=== PATIENT | female | born 1935 | race African-American/Black ===

== ENCOUNTER 2017-03-21 12:54 | Inpatient (IN) | payer OTHER ==
[2017-03-21] VITALS (10 sets, daily range): BP systolic 118–182; BP diastolic 78–114
[~2017-03-21] VITALS: Ht 167.6 cm; Wt 91.8 kg
--- NOTE | 2017-03-21 13:06 | EKG ---
[facility] [address] [place] [address] Test Date: 2017-03-21 Test Time: 13:00:33 Pat Name: GAVIN MORA Department: Room: Gender: F [employer]: : 1935 Requested By: KATIE AMIN Order Number: [id number] Reading MD: Matty Hermosillo Measurements Intervals [place] Rate: 55 P: 54 TN: 206 QRS: -36 QRSD: 96 T: 64 QT: 466 QTc: 448 Interpretive Statements SINUS RHYTHM ABNORMAL LEFT AXIS DEVIATION LEFT ANTERIOR FASCICULAR BLOCK T ABNORMALITY IN LATERAL LEADS RI6.01 Unconfirmed report Compared to ECG 04/30/2012 17:36:38 No significant changes Electronically Signed On 03-22-2017 11:25:25 CDT by Matty Hermosillo
[2017-03-21 13:11] LABS: BASO % 1 % (0-3); EOS % 1 % (0-3); HEMATOCRIT 42.5 % (36.0-47.0); HEMOGLOBIN 13.4 g/dL (12.0-15.5); LYMPH # 1.3 x10^3/uL (1.0-4.8); LYMPH % 18 % (24-48); MEAN CORPUSCULAR HEMOGLOBIN 23 pg (25-35); MEAN CORPUSCULAR HGB CONC 32 g/dL (31-37); MEAN CORPUSCULAR VOLUME 72 fL (79-100); MONO % 4 % (0-9); NEUT % 77 % (31-73); PLATELET COUNT 185 x10^3/uL (140-400); RED BLOOD COUNT 5.86 x10^6/uL (3.50-5.40); RED CELL DISTRIBUTION WIDTH 15.6 % (11.5-14.5)
[2017-03-21] MEDS ORDERED: IV NORMAL SALINE 500ML BAG 500 ML IV ONE (13:15)
--- NOTE | 2017-03-21 13:21 | PHYS DOC ---
Adult General Chief Complaint Chief Complaint: confusion HPI HPI 81-year-old female presenting to the emergency department today after being found by family confused and with decreased mental status. Paramedics report the patient has focal neurologic deficit however on examination of the patient the patient is generally decreased mental status. Exam is difficult in the emergency room here because the patient does not follow commands. She does hold up her left arm when you help her she keeps it up. With her right arm, she does have drift. She was last known normal at 8:00 this morning per family. Location brain. Duration intermittent. No alleviating or exacerbating factors. Review of systems, allergies, medical history, and family history were unable to be obtained because the patient is currently confused and will not answer my questions. 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 ED course: 81-year-old female presenting with acute change in her mental status. EKG obtained along with CT of the head blood work. The patient was found to have a hemorrhagic stroke intraparenchymal bleed with intraventricular extension. I discussed the case with Dr. caal our neurosurgeon who recommended repeat head CT at 6 PM and tomorrow morning. The patient's INR was reversed using FFP and vitamin K. We do not have the new or degeneration prothrombin complex concentrate's available at our hospital system. I confirmed this with our pharmacist. The patient was intubated for airway protection. I had a long discussion with the family. Patient is full code. The patient was admitted to our hospital for further evaluation workup and care. Review of Systems Review of Systems see above Current Medications Current Medications Current Medications Medications (Trade) Dose Ordered Sig/Howard Start Time Stop Time Status Last Admin Dose Admin Diltiazem HCl 125 mg/Dextrose 125 ml @ 0 mls/hr CONT PRN 03/21/17 14:15 03/21/17 14:48 DC 03/21/17 14:35 5 MLS/HR Fentanyl Citrate (Fentanyl 2ml Vial) 50 mcg PRN Q1HR PRN 03/21/17 14:30 Morphine Sulfate 4 mg PRN Q1HR PRN 03/21/17 14:30 UNV Ondansetron HCl (Zofran) 4 mg PRN Q8HRS PRN 03/21/17 14:30 03/22/17 14:29 Phytonadione 10 mg/Sodium Chloride 51 ml @ 102 mls/hr 1X ONCE 03/21/17 14:00 03/21/17 14:29 DC 03/21/17 14:06 102 MLS/HR Propofol 100 ml @ 0 mls/hr CONT PRN 03/21/17 14:30 Sodium Chloride 500 ml @ 500 mls/hr 1X ONCE 03/21/17 13:15 03/21/17 14:14 DC 03/21/17 13:14 500 MLS/HR Allergies Allergies Allergies Coded Allergies Type Severity Reaction Last Updated Verified codeine Allergy Intermediate 03/21/17 Yes Physical Exam Physical Exam Constitutional: Well developed, well nourished,confused HENT: Normocephalic, atraumatic, bilateral external ears normal, oropharynx moist, no oral exudates, nose normal. [] Eyes: PERRLA, EOMI, conjunctiva normal, no discharge. [] Neck: Normal range of motion, no tenderness, supple, no stridor. [] Cardiovascular:Heart rate regular rhythm, no murmur [] Lungs & Thorax: Bilateral breath sounds clear to auscultation [] Abdomen: Bowel sounds normal, soft, no tenderness, no masses, no pulsatile masses. [] Skin: Warm, dry, no erythema, no rash. [] Back: No tenderness, no CVA tenderness. [] Extremities: No tenderness, no cyanosis, no clubbing, ROM intact, no edema. [] Neurologic: Mental status: Somnolent, does not withdraw to pain, opens eyes intermittently and spontaneously. Makes incomprehensible speech. Cranial nerves: Extraocular movements intact, eyebrows praneeth bilaterally smile symmetric, uvula elevation, shoulder shrug intact, tongue protrusion normal DTRs: 2+ Sensation: Difficult to assess, patient does not respond to painful pinch and does not answer my questions. Strength: 5/5 on the left upper and lower. 3/5 on the right upper and lower Psychologic: good eye contact. Current Patient Data Vital Signs Vital Signs Date Time Temp Pulse Resp B/P (MAP) Pulse Ox O2 Delivery O2 Flow Rate FiO2 03/21/17 13:00 97.7 64 20 167/99 (121) 97 Room Air 97.7 Lab Values Laboratory Tests Test 03/21/17 13:05 03/21/17 13:17 03/21/17 13:20 03/21/17 13:37 White Blood Count 7.0 x10^3/uL (4.0-11.0) Red Blood Count 5.86 x10^6/uL (3.50-5.40) H Hemoglobin 13.4 g/dL (12.0-15.5) Hematocrit 42.5 % (36.0-47.0) Mean Corpuscular Volume 72 fL (79-100) L Mean Corpuscular Hemoglobin 23 pg (25-35) L Mean Corpuscular Hemoglobin Concent 32 g/dL (31-37) Red Cell Distribution Width 15.6 % (11.5-14.5) H Platelet Count 185 x10^3/uL (140-400) Neutrophils (%) (Auto) 77 % (31-73) H Lymphocytes (%) (Auto) 18 % (24-48) L Monocytes (%) (Auto) 4 % (0-9) Eosinophils (%) (Auto) 1 % (0-3) Basophils (%) (Auto) 1 % (0-3) Neutrophils # (Auto) 5.4 x10^3uL (1.8-7.7) Lymphocytes # (Auto) 1.3 x10^3/uL (1.0-4.8) Monocytes # (Auto) 0.3 x10^3/uL (0.0-1.1) Eosinophils # (Auto) 0.0 x10^3/uL (0.0-0.7) Basophils # (Auto) 0.0 x10^3/uL (0.0-0.2) Platelet Estimate Adequate (ADEQUATE) Hypochromasia Slight Microcytosis Slight Sodium Level 138 mmol/L (136-145) Potassium Level 4.0 mmol/L (3.5-5.1) Chloride Level 101 mmol/L (98-107) Carbon Dioxide Level 23 mmol/L (21-32) Anion Gap 14 (6-14) Blood Urea Nitrogen 10 mg/dL (7-20) Creatinine 0.8 mg/dL (0.6-1.0) Estimated GFR (Cockcroft-Gault) 83.3 Glucose Level 205 mg/dL (70-99) H Calcium Level 9.5 mg/dL (8.5-10.1) Total Bilirubin 0.4 mg/dL (0.2-1.0) Direct Bilirubin 0.1 mg/dL (0.0-0.2) Aspartate Amino Transferase (AST) 19 U/L (15-37) Alanine Aminotransferase (ALT) 21 U/L (14-59) Alkaline Phosphatase 83 U/L (46-116) Troponin I Quantitative < 0.017 ng/mL (0.000-0.055) BM-Nyl-O-Type Natriuretic Peptide 544 pg/mL (0-449) H Total Protein 8.8 g/dL (6.4-8.2) H Albumin 4.0 g/dL (3.4-5.0) Lipase 104 U/L (73-393) Lactic Acid Level 1.6 mmol/L (0.4-2.0) Urine Collection Type Unknown Urine Color Yellow Urine Clarity Clear Urine pH 7.0 Urine Specific [place] 1.010 Urine Protein Negative mg/dL (NEG-TRACE) Urine Glucose (UA) 100 mg/dL (NEG) Urine Ketones (Stick) Negative mg/dL (NEG) Urine Blood Negative (NEG) Urine Nitrite Negative (NEG) Urine Bilirubin Negative (NEG) Urine Urobilinogen Dipstick 0.2 mg/dL (0.2 mg/dL) Urine Leukocyte Esterase Trace (NEG) Urine RBC 3-5 /HPF (0-2) Urine WBC 0 /HPF (0-4) Urine Bacteria 0 /HPF (0-FEW) Urine Mucus Slight /LPF Prothrombin Time 24.8 SEC (11.7-14.0) H Prothrombin Time INR 2.4 (0.8-1.1) H PTT 29 SEC (24-38) Laboratory Tests 03/21/17 13:05 Laboratory Tests 03/21/17 13:05 EKG EKG [] Radiology/Procedures Radiology/Procedures [] Course & Med Decision Making Course & Med Decision Making Pertinent Labs and Imaging studies reviewed. (See chart for details) [] Dragon Disclaimer Dragon Disclaimer This electronic medical record was generated, in whole or in part, using a voice recognition dictation system. Departure Departure Impression: Primary Impression: Altered mental status Additional Impressions: Encephalopathy Encephalopathy acute Hemorrhagic stroke Disposition: ADMITTED INPATIENT Admitting Physician: Other (ruesch) Condition: GRAVE Referrals: DANIA AMIN (PCP) Critical Care Time Critical care time was [45] minutes exclusive of procedures. Time was spent evaluating the patient, ordering blood tests and head CT, reviewing head CT, discussing with neurosurgeon, ordering the administration of bursal agents for warfarin, and documenting. Intubation Procedure Intubation Procedure Intub Indication: Respiratory failure Consent: Unable to give consent due to emergent nature. Medications Used: see nursing note Procedure: The patient was placed in the appropriate position. Intubation was performed using video laryngoscopy and a 7-1/2 endotracheal tube. Endotracheal tube is placed a 23cm at the teeth.. Initial confirmation of placement included bilateral breath sounds, tube fogging, adequate chest rise, adequate pulse oximetry reading. A chest x-ray to verify correct placement of the tube showed appropriate tube position. The patient tolerated the procedure well. Complications: none. Problem Qualifiers KATIE AMIN MD Mar 21, 2017 13:21
[2017-03-21 13:40] LABS: BILIRUBIN,URINE NEGATIVE (NEG); GLUCOSE,URINE 100 mg/dL (NEG); NITRITE,URINE NEGATIVE (NEG); PROTEIN,URINE NEGATIVE (NEG-TRACE); UROBILINOGEN,URINE 0.2 mg/dL (0.2 mg/dL)
--- NOTE | 2017-03-21 13:48 | RAD ---
Examination: CT head without contrast History: History of confusion Comparison: None available Technique: Axial CT images of the head was performed without contrast. RS Compliance Statement: One or more of the following individualized dose reduction techniques were utilized for this examination: 1. Automated exposure control 2. Adjustment of the mA and/or kV according to patient size 3. Use of iterative reconstruction technique Findings: There is 7 mm [id number] midline shift. There is a large hyperdensity identified in the region of the left basal ganglia measuring 4.9 x 4.0 cm likely a bleed with extension of blood into the left lateral ventricle, right lateral ventricle, third ventricle and fourth ventricle. There is complete effacement of the anterior horn of the left lateral ventricle There is minimal effacement of the suprasellar cistern. The visualized paranasal sinuses, sinuses are clear. Impression: 1. Large intracranial bleed identified in the region of the left basal ganglia with extension of blood into the lateral ventricles, third ventricle and fourth ventricle. There is effacement of the anterior horn of the left lateral ventricle. There is mild [id number] midline shift measuring 7 mm. 2. Mild effacement of the suprasellar cistern. Critical results called to ER physician at time of dictation.
--- NOTE | 2017-03-21 13:49 | RAD ---
Indication change in mental status. Suspect CVA. Protocol study. A single view of the chest was obtained and is compared to an examination almost 5 years earlier. Postoperative changes are noted. Prosthetic aortic valve is noted. Somewhat tortuous thoracic aorta is noted similar to the previous exam. Heart size is slightly enlarged but also similar. There is no gross congestive heart failure. A focal process in the chest is not seen. IMPRESSION: No acute finding apparent in the chest
[2017-03-21 13:50] LABS: CALCIUM 9.5 mg/dL (8.5-10.1); CREATININE 0.8 mg/dL (0.6-1.0); GFR 83.3
[2017-03-21 13:51] LABS: BACTERIA,URINE 0 /HPF (0-FEW); WBC,URINE 0 /HPF (0-4)
[2017-03-21 13:56] LABS: DIRECT BILIRUBIN 0.1 mg/dL (0.0-0.2); TOTAL BILIRUBIN 0.4 mg/dL (0.2-1.0); TOTAL PROTEIN 8.8 g/dL (6.4-8.2)
[2017-03-21 13:57] LABS: INR 2.4 (0.8-1.1); PROTHROMBIN TIME PATIENT 24.8 SEC (11.7-14.0)
[2017-03-21] MEDS ORDERED: PHYTONADIONE (VIT K1) 10 MG in IV NORMAL SALINE 50ML 50 ML IV ONE (14:00)
[2017-03-21] MEDS ORDERED: PROPOFOL 50 ML IV ONE (14:10)
[2017-03-21] MEDS ORDERED: MORPHINE SULFATE 4 MG/ML DISP.SYRIN. IV PRN (14:30)
[2017-03-21] MEDS ORDERED: ONDANSETRON PF 4 MG/2 ML VIAL. IV PRN (14:30)
[2017-03-21] MEDS ORDERED: fentaNYL PF VIAL 100 MCG/2 ML VIAL IV PRN ×2 (14:30)
[2017-03-21] MEDS ORDERED: MORPHINE SULFATE 2 MG/ML DISP.SYRIN. IV PRN ×2 (14:30)
[2017-03-21 14:31] LABS: PLT ESTIMATE ADEQUATE (ADEQUATE)
[2017-03-21 14:32] LABS: HYPOCHROMIA SLIGHT; MICROCYTOSIS SLIGHT
[2017-03-21 14:54] LABS: HCO3 ABG 22 mmol/L (21-28); PCO2 ABG 35 mmHg (35-46); PH ABG 7.42 (7.35-7.45); PO2 ABG 105 mmHg (65-108); SAT O2 ABG 98 % (92-99)
[2017-03-21 14:55] LABS: FIO2 ABG 50
--- NOTE | 2017-03-21 15:03 | ACF ---
Admit Criteria Forms Admit Criteria Forms Admit Criteria Forms MENTAL STATUS CHANGE Clinical Indications for Inpatient Care (Place 'X' for any and all applicable criteria): Ongoing inpatient care may be needed for 1 or more of the following(1)(2)(3)(5)( 6): [X]I. Suspected serious etiology (eg, medical disorder, [employer] event) of altered mental status [ ]II. Danger to self or others not manageable at lower level of care [ ]III. Grave disability (eg, inability to perform self care necessary at lower level of care) [ ]IV. Agitation or inappropriate behavior interfering with care for primary condition (eg, attempting to discontinue lines or drains prematurely, unable to cooperate with respiratory care) [ ]V. Delirium [A] [D][E] as described by 1 or more of the following(26): [ ]a) Delirium due to alcohol or sedative [F] withdrawal [ ]b) Delirium of uncertain etiology that has not responded to appropriate empiric treatment [ ]c) Delirium that prevents performance of a life-sustaining function (eg, feeding or hydrating oneself) [X]. General contraindications and/or Inappropriate clinical situations for Observational Care in patients with Mental Status Change, when ANY ONE of the following is required: [X]a) Prediction of prolongation of LOS based on ANY ONE of the following may be considered as a contraindication for observational care 2, 3, 4, 5, 6, 7, 8, 9, 10, 11 [X]i) Age > 65 yrs. [ ]ii) Patient arriving by ambulance [ ]iii) Patient with high acuity [ ]iv) Patient requiring vital sign monitoring [ ]v) Patient on IV medication [ ]b) Systolic blood pressures greater than or equal to 180mmHg 3, 12 [ ]c) Patient with altered mental status including delirium and other alteration of consciousness, (3) [ ]d) Patient whose discharge disposition will be to a [facility] home or rehabilitation home should not be managed in Emergency Department Observation Unit. CMS rule requires 3 days hospital stay before such placement.3,13 [ ]e) Patient with failure to thrive due to broad array of etiologies 3,16,17 [ ]f) Inability to ambulate 3,14 Extended stay beyond goal length of stay for the primary condition may be needed until ALL of the following are present(3)(5): [ ]a) Underlying medical etiology of mental status change is absent, or has been established and adequately treated [ ]b) Danger to self or others is absent or manageable at lower level of care. [ ]c) Behavior crisis management, including physical or chemical restraints, is not required or available at lower level of car [ ]d) Substance or alcohol withdrawal is absent or manageable at lower level of care. [ ]e) Behavioral symptoms (eg, agitation, somnolence, inappropriate behavior) are absent, or are manageable at lower level of care. The original [facility] [employer] content created by [facility] has been revised. The portions of the content which have been revised are identified through the use of italic text or in bold, and [facility] has neither reviewed nor approved the modified material. All other unmodified content is copyright [facility]. Please see references footnoted in the original [facility] [employer] edition 2016 [employer] Mar 21, 2017 15:03
--- NOTE | 2017-03-21 16:44 | PDOC2 ---
NEUROLOGY CONSULT Date of Admission Date of Admission DATE: 03/21/17 TIME: 16:33 Reason for Consult Reason for Consult: IMPRESSION: Acute large left BG hemorrhagic stroke with extension into lateral, 3rd, and 4th ventricles. Midline shift from left to right. Respiratory failure. Metabolic encephalopathy. Ischemic encephalopathy. HTN DM CAD, s/p CABG? RECOMMENDATIONS/PLAN: BP control, BP no higher than 150/90 mmHg. Avoid antiplatelet and anticoagulants. Repeat HCT anytime if condition worse. Vimpat 100 mg IV q12h. Control hyperglycemia. Treat medical diseases. Discussed with her daughter about poor prognosis. HISTORY OF THE PRESENT ILLNESS: 81-y-old AA female patient with above medical diseases was found by her family to have mental status changes and confusion before 8:00 am on 03/21/17. Her mentation continued worse, so she was brought to the ER of [facility] and her HCT revealed large ICH and IVH. PAST MEDICAL HISTORY: Please see above. PAST SURGERY HISTORY: S/P CABG? ALLERGY: Unknown MEDICATIONS: Refer to [facility] FAMILY HISTORY: Non contributory. SOCIAL HISTORY: Denies smoking, drinking, and illicit drug use. REVIEW OF SYSTEMS: Constitutional: No malnutrition, or cachexia. Head: No recent traumatic brain or head injury. Skin: No edema, or rash. Ear: No infection. Eyes: No vision loss or color blindness. Nose: No bleeding or purulent discharges. Hearing: Hearing decrease. Neck: No injury. Breast: No history of cancer, masses,or discharges. Cardiac: CAD, s/p CABG,? HTN. Pulmonary: No COPD. GI: No GI ulcer. Urinary/genital: UTI. Endocrinologic: Diabetes Mellitus. Skeletomuscular: No muscular atrophy, deformity. Neurological: see HP. Psychiatric: Denies drug use/abuse. Otherwise, not [id number] review of systems. PHYSICAL EXAMINATION: General appearance is in acute distress. HEENT: Normocephalic and nontraumatic. Eyes, nose, ears, and throat are unremarkable. Neck is supple. No lymphadenopathy. No crepitus. Cardiovascular: S1, S2, regular rate and rhythm. Pulmonary: Mildly decreased to auscultation bilaterally. Abdomen: Bowel sounds are positive. Extremities: No rash, lesions. NEUROLOGICAL EXAMINATION: Unresponsive. On vent. Not oriented to time, place and person. Pupil 1 mm, not reactive. EOMI not elicited. CN: Right VII palsy. Muscle tone: Decreased. Muscle strength: minimal movements in feet noted to stimuli. DTR: 1 Plantar reflex: Neutral response bilaterally Gait: Not able to walk. Sensory exam: no response. Not able to access cerebellar signs. Current Medications Current Medications Current Medications Sodium Chloride 500 ml @ 500 mls/hr 1X ONCE IV Last administered on 13:14; Start 03/21/17 at 13:15; Stop 03/21/17 at 14:14; Status DC Phytonadione 10 mg/Sodium Chloride 51 ml @ 102 mls/hr 1X ONCE IV Last administered on 03/21/17 14:06; Start 03/21/17 at 14:00; Stop 03/21/17 at 14:29 ; Status DC Diltiazem HCl 125 mg/Dextrose 125 ml @ 0 mls/hr CONT PRN IV SEE I/O RECORD Last administered on 03/21/17 14:35; Start 03/21/17 at 14:15; Stop 03/21/17 at 14:48; Status DC Propofol 50 ml @ As Directed STK-MED ONCE IV ; Start 03/21/17 at 14:10; Stop at 14:11; Status DC Levetiracetam 1000 mg/Sodium Chloride 110 ml @ 440 mls/hr 1X ONCE IV Last administered on 03/21/17 14:51; Start 03/21/17 at 14:45; Stop 03/21/17 at 14:59 ; Status DC Ondansetron HCl (Zofran) 4 mg PRN Q8HRS PRN IV NAUSEA/VOMITING; Start 03/21/17 at 14:30; Stop 03/22/17 at 14:29 Morphine Sulfate 2 mg PRN Q2HR PRN IV PAIN; Start 03/21/17 at 14:30; Stop 03/22 at 14:29; Status UNV Propofol 100 ml @ 0 mls/hr CONT PRN IV PER PROTOCOL; Start 03/21/17 at 14:30 Fentanyl Citrate (Fentanyl 2ml Vial) 25 mcg PRN Q1HR PRN IV COMM; Start at 14:30 Fentanyl Citrate (Fentanyl 2ml Vial) 50 mcg PRN Q1HR PRN IV COMM; Start at 14:30 Chlorhexidine Gluconate (Peridex) 15 ml BID MM ; Start 03/21/17 at 21:00 Famotidine (Pepcid) 20 mg BID IVP ; Start 03/21/17 at 21:00 Morphine Sulfate 2 mg PRN Q1HR PRN IV COMM; Start 03/21/17 at 14:30; Status UNV Morphine Sulfate 4 mg PRN Q1HR PRN IV COMM; Start 03/21/17 at 14:30; Status UNV Nicardipine HCl 50 mg/Sodium Chloride 270 ml @ 0 mls/hr CONT PRN IV SEE I/O RECORD Last administered on 03/21/17t 15:05; Start 03/21/17 at 15:00 Allergies Allergies: Coded Allergies: codeine (Verified Allergy, Intermediate, 03/21/17) Vitals VITALS Vital Signs Date Time Temp Pulse Resp B/P (MAP) Pulse Ox O2 Delivery O2 Flow Rate FiO2 03/21/17 14:40 99 Ventilator 03/21/17 13:00 97.7 64 20 167/99 (121) 97.7 Labs Labs Laboratory Tests Test 03/21/17 13:05 03/21/17 13:17 03/21/17 13:20 03/21/17 13:37 White Blood Count 7.0 x10^3/uL (4.0-11.0) Red Blood Count 5.86 x10^6/uL (3.50-5.40) Hemoglobin 13.4 g/dL (12.0-15.5) Hematocrit 42.5 % (36.0-47.0) Mean Corpuscular Volume 72 fL (79-100) Mean Corpuscular Hemoglobin 23 pg (25-35) Mean Corpuscular Hemoglobin Concent 32 g/dL (31-37) Red Cell Distribution Width 15.6 % (11.5-14.5) Platelet Count 185 x10^3/uL (140-400) Neutrophils (%) (Auto) 77 % (31-73) Lymphocytes (%) (Auto) 18 % (24-48) Monocytes (%) (Auto) 4 % (0-9) Eosinophils (%) (Auto) 1 % (0-3) Basophils (%) (Auto) 1 % (0-3) Neutrophils # (Auto) 5.4 x10^3uL (1.8-7.7) Lymphocytes # (Auto) 1.3 x10^3/uL (1.0-4.8) Monocytes # (Auto) 0.3 x10^3/uL (0.0-1.1) Eosinophils # (Auto) 0.0 x10^3/uL (0.0-0.7) Basophils # (Auto) 0.0 x10^3/uL (0.0-0.2) Platelet Estimate Adequate (ADEQUATE) Hypochromasia Slight Microcytosis Slight Sodium Level 138 mmol/L (136-145) Potassium Level 4.0 mmol/L (3.5-5.1) Chloride Level 101 mmol/L (98-107) Carbon Dioxide Level 23 mmol/L (21-32) Anion Gap 14 (6-14) Blood Urea Nitrogen 10 mg/dL (7-20) Creatinine 0.8 mg/dL (0.6-1.0) Estimated GFR (Cockcroft-Gault) 83.3 Glucose Level 205 mg/dL (70-99) Calcium Level 9.5 mg/dL (8.5-10.1) Total Bilirubin 0.4 mg/dL (0.2-1.0) Direct Bilirubin 0.1 mg/dL (0.0-0.2) Aspartate Amino Transf (AST/SGOT) 19 U/L (15-37) Alanine Aminotransferase (ALT/SGPT) 21 U/L (14-59) Alkaline Phosphatase 83 U/L (46-116) Troponin I Quantitative < 0.017 ng/mL (0.000-0.055) DQ-Roy-W-Type Natriuretic Peptide 544 pg/mL (0-449) Total Protein 8.8 g/dL (6.4-8.2) Albumin 4.0 g/dL (3.4-5.0) Lipase 104 U/L (73-393) Lactic Acid Level 1.6 mmol/L (0.4-2.0) Urine Collection Type Unknown Urine Color Yellow Urine Clarity Clear Urine pH 7.0 Urine Specific [place] 1.010 Urine Protein Negative mg/dL (NEG-TRACE) Urine Glucose (UA) 100 mg/dL (NEG) Urine Ketones (Stick) Negative mg/dL (NEG) Urine Blood Negative (NEG) Urine Nitrite Negative (NEG) Urine Bilirubin Negative (NEG) Urine Urobilinogen Dipstick 0.2 mg/dL (0.2 mg/dL) Urine Leukocyte Esterase Trace (NEG) Urine RBC 3-5 /HPF (0-2) Urine WBC 0 /HPF (0-4) Urine Bacteria 0 /HPF (0-FEW) Urine Mucus Slight /LPF Prothrombin Time 24.8 SEC (11.7-14.0) Prothromb Time International Ratio 2.4 (0.8-1.1) Activated Partial Thromboplast Time 29 SEC (24-38) Test 03/21/17 14:45 O2 Saturation 98 % (92-99) Arterial Blood pH 7.42 (7.35-7.45) Arterial Blood pCO2 at Patient Temp 35 mmHg (35-46) Arterial Blood pO2 at Patient Temp 105 mmHg (65-108) Arterial Blood HCO3 22 mmol/L (21-28) Arterial Blood Base Excess -2 mmol/L (-3-3) FiO2 50 Laboratory Tests Test 03/21/17 13:05 03/21/17 13:17 03/21/17 13:20 03/21/17 13:37 White Blood Count 7.0 x10^3/uL (4.0-11.0) Red Blood Count 5.86 x10^6/uL (3.50-5.40) Hemoglobin 13.4 g/dL (12.0-15.5) Hematocrit 42.5 % (36.0-47.0) Mean Corpuscular Volume 72 fL (79-100) Mean Corpuscular Hemoglobin 23 pg (25-35) Mean Corpuscular Hemoglobin Concent 32 g/dL (31-37) Red Cell Distribution Width 15.6 % (11.5-14.5) Platelet Count 185 x10^3/uL (140-400) Neutrophils (%) (Auto) 77 % (31-73) Lymphocytes (%) (Auto) 18 % (24-48) Monocytes (%) (Auto) 4 % (0-9) Eosinophils (%) (Auto) 1 % (0-3) Basophils (%) (Auto) 1 % (0-3) Neutrophils # (Auto) 5.4 x10^3uL (1.8-7.7) Lymphocytes # (Auto) 1.3 x10^3/uL (1.0-4.8) Monocytes # (Auto) 0.3 x10^3/uL (0.0-1.1) Eosinophils # (Auto) 0.0 x10^3/uL (0.0-0.7) Basophils # (Auto) 0.0 x10^3/uL (0.0-0.2) Platelet Estimate Adequate (ADEQUATE) Hypochromasia Slight Microcytosis Slight Sodium Level 138 mmol/L (136-145) Potassium Level 4.0 mmol/L (3.5-5.1) Chloride Level 101 mmol/L (98-107) Carbon Dioxide Level 23 mmol/L (21-32) Anion Gap 14 (6-14) Blood Urea Nitrogen 10 mg/dL (7-20) Creatinine 0.8 mg/dL (0.6-1.0) Estimated GFR (Cockcroft-Gault) 83.3 Glucose Level 205 mg/dL (70-99) Calcium Level 9.5 mg/dL (8.5-10.1) Total Bilirubin 0.4 mg/dL (0.2-1.0) Direct Bilirubin 0.1 mg/dL (0.0-0.2) Aspartate Amino Transf (AST/SGOT) 19 U/L (15-37) Alanine Aminotransferase (ALT/SGPT) 21 U/L (14-59) Alkaline Phosphatase 83 U/L (46-116) Troponin I Quantitative < 0.017 ng/mL (0.000-0.055) BA-Yox-G-Type Natriuretic Peptide 544 pg/mL (0-449) Total Protein 8.8 g/dL (6.4-8.2) Albumin 4.0 g/dL (3.4-5.0) Lipase 104 U/L (73-393) Lactic Acid Level 1.6 mmol/L (0.4-2.0) Urine Collection Type Unknown Urine Color Yellow Urine Clarity Clear Urine pH 7.0 Urine Specific [place] 1.010 Urine Protein Negative mg/dL (NEG-TRACE) Urine Glucose (UA) 100 mg/dL (NEG) Urine Ketones (Stick) Negative mg/dL (NEG) Urine Blood Negative (NEG) Urine Nitrite Negative (NEG) Urine Bilirubin Negative (NEG) Urine Urobilinogen Dipstick 0.2 mg/dL (0.2 mg/dL) Urine Leukocyte Esterase Trace (NEG) Urine RBC 3-5 /HPF (0-2) Urine WBC 0 /HPF (0-4) Urine Bacteria 0 /HPF (0-FEW) Urine Mucus Slight /LPF Prothrombin Time 24.8 SEC (11.7-14.0) Prothromb Time International Ratio 2.4 (0.8-1.1) Activated Partial Thromboplast Time 29 SEC (24-38) Test 03/21/17 14:45 O2 Saturation 98 % (92-99) Arterial Blood pH 7.42 (7.35-7.45) Arterial Blood pCO2 at Patient Temp 35 mmHg (35-46) Arterial Blood pO2 at Patient Temp 105 mmHg (65-108) Arterial Blood HCO3 22 mmol/L (21-28) Arterial Blood Base Excess -2 mmol/L (-3-3) FiO2 50 DAMIEN SCHILLING MD Mar 21, 2017 16:44
--- NOTE | 2017-03-21 17:01 | PDOC2 ---
PALLIATIVE CARE Palliative Care Note Palliative Care Consult requested by Dr. Rodriguez to address plan of care Diagnosis; Hemorrhagic CVA--large with midline shift; PMH: Valve replacement --on Warfarin and ASA; HTN; elevated cholesterol: Hip and knee surgery/replacement; cataract surgery Patient on Vent. Versed gtt; Met with Drea daughter (identifies herself as DPOA)along with Dr. Rodriguez and Paradise RN. Medical condition was reviewed by Michael. Drea requests DNR. Drea understands seriousness of medical condition. Patient has 5 other children; Patti, , Talisha, Roseann, Kaitlyn and Amador. Plan repeat of CT scan at 6pm Suyapa is important to patient. Will meet with family again tomorrow at [address] Mar 21, 2017 17:01
[2017-03-21] MEDS: PROPOFOL 100 ML IV PRN ×2 (17:51→22:56)
[2017-03-21] MEDS ORDERED: ROCURONIUM 50 MG/5 ML VIAL. ONE (17:59)
[2017-03-21] MEDS ORDERED: ETOMIDATE 20 MG/10 ML VIAL. IV ONE (17:59)
--- NOTE | 2017-03-21 18:34 | RAD ---
CT HEAD WO CONTRAST dated 03/21/2017 6:00 PM Indication: Follow-up intracranial hemorrhage confusionIPH, REPEAT, F/U BRAIN BLEED. PREVIOUS CT TODAY AT 13:30PM. , Follow-up brain bleed. Comparison: 03/21/2017 at 1331 Technique: Contiguous axial imaging of the head performed from skull base to vertex. One or more of the following individualized dose reduction techniques were utilized for this examination: 1. Automated exposure control 2. Adjustment of the mA and/or kV according to patient size 3. Use of iterative reconstruction technique Findings: Large parenchymal hematoma centered at the left frontal lobe has increased in size from prior study, measuring 4.9 x 5.7 cm versus 3.7 x 4.6 cm previously. Extensive intraventricular hemorrhage has also progressed with increasing hemorrhage in the right lateral ventricle and fourth ventricle. Moderate mass effect upon the left lateral ventricle with estimated 11 mm of [id number] midline shift versus 10 mm previously. There is effacement of the ambient cisterns, left greater than right, unchanged. There has been progressive dilation of the right lateral ventricle, measuring 2.0 cm versus 1.6 cm diameter. Mild patchy low density in the deep/subcortical periventricular white matter, unchanged. No extra-axial collection. Visualized paranasal sinuses and mastoid air cells are clear. No acute calvarial abnormality. IMPRESSION: 1. Enlarging left frontal parenchymal hematoma with increasing intraventricular hemorrhage. 2. Moderate to severe mass effect with [id number] midline shift, mildly increased from prior study. There is effacement of the ambient cisterns with possible early entrapment of the right lateral ventricle. 3. Chronic small vessel ischemic changes and atrophy. Electronically signed by: Simón Sierra MD (03/21/2017 6:31 PM)
[2017-03-21] MEDS ORDERED: DIFL5DRO2 OP (18:44)
[2017-03-21] MEDS ORDERED: DILT120C80 PO (18:44)
[2017-03-21] MEDS ORDERED: SOTA80TA48 PO (18:44)
[2017-03-21] MEDS ORDERED: TOBR5DRO13 EACHEYE (18:44)
[2017-03-21] MEDS ORDERED: PRAV20TA2 PO (18:44)
[2017-03-21] MEDS ORDERED: LOSA100T6 PO (18:44)
[2017-03-21] MEDS ORDERED: WARF5TAB7 PO (18:44)
[2017-03-21] MEDS ORDERED: PRAV40TA2 PO (18:44)
[2017-03-21 19:56] LABS: INR 1.5 (0.8-1.1); PROTHROMBIN TIME PATIENT 16.8 SEC (11.7-14.0)
[2017-03-21] MEDS: LACOSAMIDE 100 MG in IV NORMAL SALINE 50ML 50 ML IV SCH (21:20)
--- NOTE | 2017-03-21 21:20 | HP ---
ADMIT DATE: 03/21/2017 CHIEF COMPLAINT: Intracranial hemorrhage. HISTORY OF PRESENT ILLNESS: The patient is an 81-year-old -Portuguese woman with past medical history of atrial fibrillation and mitral valve replacement, on anticoagulation, who presented to the Emergency Room after being found by the family confused at home. This apparently developed in this morning, with family relating that at 8:00 she was fairly normal. In the Emergency Room, she was not following any commands and a CT of the head revealed a large intracranial bleed in the region of the left basal ganglia with extension of blood into the lateral ventricles, third ventricle and fourth ventricle. Also noted were mild left to right midline shift measuring 7 mm, mild effacement of the suprasellar cistern. The patient was therefore intubated and brought to the ICU. Dr. Fabian from Neurosurgery has been consulted, no intervention is planned immediately, but repeat scans have been scheduled. PAST MEDICAL HISTORY: Atrial fibrillation, mitral valve replacement 9 years ago, osteoarthritis, status post multiple joint replacements, status post bilateral cataract removals. SOCIAL HISTORY: Lives with family. No toxic habits. FAMILY HISTORY: Unknown. ALLERGIES: CODEINE. HOME MEDICATIONS: Reconciled with MAR. REVIEW OF SYSTEMS: Unable to obtain as she is intubated and sedated. PHYSICAL EXAMINATION: VITAL SIGNS: Show a blood pressure of 167/99, heart rate of 64, respiratory rate at 20. She is afebrile. GENERAL: This is an 81-year-old obese -Portuguese woman, intubated and sedated. HEENT: Shows no scleral icterus. NECK: Supple. LUNGS: Fairly clear anteriorly. HEART: Has regular rate and rhythm. LUNGS: Clear. ABDOMEN: Has positive bowel sounds, soft, nontender. EXTREMITIES: Show no edema. NEUROLOGIC: Shows pinpoint pupils, not responsive to tactile stimuli, but to deep pain in the extremities. LABORATORY DATA: CBC with a WBC of 7, hemoglobin 13.4, MCV of 72, platelets of 185. Chemistries with a BUN and creatinine of 10 and 0.8, normal electrolytes, glucose at 205. Normal LFTs. Coags with an INR of 2.4, APTT of 29. Urine essentially negative. IMAGING: CT of the head as above. Chest x-ray without any acute findings. ASSESSMENT AND PLAN: The patient is an 81-year-old woman on anticoagulation for cardiac issues who presented with intracranial bleed. This apparently is a spontaneous development as family is unaware of any falls or head injuries today. Unfortunately, the bleed is quite extensive involving all the ventricles and significant infra parenchymal tissue. At this point, neurosurgical intervention is not indicated; however, serial CTs of the head will be obtained to monitor development of the bleed. Consideration for relief of hydrocephalus with shunt is given; however, this is unlikely to improve her overall situation significantly. Family discussion with KARINE, daughter, Drea was held with palliative care services present as well. Family would like to make the patient DNR. Continue monitoring for the time being, reevaluate the situation once all results are in. Her family is hesitant at this point to consider a shunt placement given the poor outlook. Drea and her sisters actually have been taking care of their father for 6 months who was on hospice as well as currently an uncle and therefore have quite a bit of experience with end of life situations. Code status was therefore changed to DNR. A consult with Neurology, Neurosurgery and Pulmonary for management of vent was obtained as well. The patient is somewhat hypertensive. Given the extent of her bleed, we will try and manage blood pressure with IV hydralazine as needed. For bleed itself and elevated INR, 2 units of FFP were given. We will monitor INR as well and continue administration as indicated as effects of FFP on INR typically are quite short lived between 8 and 12 hours. The patient's condition is critical. Prognosis is poor. YASMANY MORALES MD DR: UR/nts JOB#: [id number] / [id number] DANIA Brown MD [facility]ENTERLee
[2017-03-21] MEDS: CHLORHEXIDINE 0.12% 15 ML MOUTHWASH. MM SCH (21:21)
[2017-03-21] MEDS: FAMOTIDINE 20 MG/2 ML VIAL IVP SCH (21:21)
[2017-03-22] VITALS (28 sets, daily range): BP systolic 111–199; BP diastolic 78–115
[2017-03-22 05:21] LABS: BASO % 0 % (0-3); EOS % 0 % (0-3); HEMATOCRIT 37.1 % (36.0-47.0); HEMOGLOBIN 11.9 g/dL (12.0-15.5); LYMPH % 10 % (24-48); MEAN CORPUSCULAR HEMOGLOBIN 23 pg (25-35); MEAN CORPUSCULAR HGB CONC 32 g/dL (31-37); MEAN CORPUSCULAR VOLUME 71 fL (79-100); MONO % 8 % (0-9); NEUT % 82 % (31-73); PLATELET COUNT 168 x10^3/uL (140-400); RED BLOOD COUNT 5.22 x10^6/uL (3.50-5.40); RED CELL DISTRIBUTION WIDTH 14.8 % (11.5-14.5); WHITE BLOOD COUNT 10.4 x10^3/uL (4.0-11.0)
[2017-03-22 05:41] LABS: CALCIUM 9.3 mg/dL (8.5-10.1); CREATININE 0.7 mg/dL (0.6-1.0); GFR 97.2; POTASSIUM 3.1 mmol/L (3.5-5.1)
[2017-03-22 08:38] LABS: HCO3 ABG 22 mmol/L (21-28); PCO2 ABG 27 mmHg (35-46); PH ABG 7.53 (7.35-7.45); PO2 ABG 142 mmHg (65-108); SAT O2 ABG 99 % (92-99)
[2017-03-22 08:43] LABS: FIO2 ABG 40
[2017-03-22] MEDS: CHLORHEXIDINE 0.12% 15 ML MOUTHWASH. MM SCH ×2 (09:04→21:18)
[2017-03-22] MEDS: FAMOTIDINE 20 MG/2 ML VIAL IVP SCH ×2 (09:04→21:18)
[2017-03-22] MEDS: LACOSAMIDE 100 MG in IV NORMAL SALINE 50ML 50 ML IV SCH ×2 (09:05→21:18)
--- NOTE | 2017-03-22 09:08 | PDOC ---
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 Replace potassium today Family meeting today, no surgical plans, Nicardipine gtt to control BP NS recommendations noted. hold oral AC Prognosis is very poor. DNR d/w family at bed side, all questions answered, palliative team is following, planning for hospice from tomorrow once every one is here. Vitals Vitals Vital Signs Date Time Temp Pulse Resp B/P (MAP) Pulse Ox O2 Delivery O2 Flow Rate FiO2 03/22/17 08:00 100.3 80 19 160/88 (112) 100 Ventilator 100.3 Physical Exam General: Other (intubated. ) Heart: Normal S1, Normal S2 Lungs: Clear, Wheezing Abdomen: Normal bowel sounds, Soft Extremities: No clubbing Skin: No rashes Labs LABS Laboratory Tests Test 03/21/17 13:05 03/21/17 13:17 03/21/17 13:20 03/21/17 13:37 White Blood Count 7.0 x10^3/uL (4.0-11.0) Red Blood Count 5.86 x10^6/uL (3.50-5.40) Hemoglobin 13.4 g/dL (12.0-15.5) Hematocrit 42.5 % (36.0-47.0) Mean Corpuscular Volume 72 fL (79-100) Mean Corpuscular Hemoglobin 23 pg (25-35) Mean Corpuscular Hemoglobin Concent 32 g/dL (31-37) Red Cell Distribution Width 15.6 % (11.5-14.5) Platelet Count 185 x10^3/uL (140-400) Neutrophils (%) (Auto) 77 % (31-73) Lymphocytes (%) (Auto) 18 % (24-48) Monocytes (%) (Auto) 4 % (0-9) Eosinophils (%) (Auto) 1 % (0-3) Basophils (%) (Auto) 1 % (0-3) Neutrophils # (Auto) 5.4 x10^3uL (1.8-7.7) Lymphocytes # (Auto) 1.3 x10^3/uL (1.0-4.8) Monocytes # (Auto) 0.3 x10^3/uL (0.0-1.1) Eosinophils # (Auto) 0.0 x10^3/uL (0.0-0.7) Basophils # (Auto) 0.0 x10^3/uL (0.0-0.2) Platelet Estimate Adequate (ADEQUATE) Hypochromasia Slight Microcytosis Slight Sodium Level 138 mmol/L (136-145) Potassium Level 4.0 mmol/L (3.5-5.1) Chloride Level 101 mmol/L (98-107) Carbon Dioxide Level 23 mmol/L (21-32) Anion Gap 14 (6-14) Blood Urea Nitrogen 10 mg/dL (7-20) Creatinine 0.8 mg/dL (0.6-1.0) Estimated GFR (Cockcroft-Gault) 83.3 Glucose Level 205 mg/dL (70-99) Calcium Level 9.5 mg/dL (8.5-10.1) Total Bilirubin 0.4 mg/dL (0.2-1.0) Direct Bilirubin 0.1 mg/dL (0.0-0.2) Aspartate Amino Transf (AST/SGOT) 19 U/L (15-37) Alanine Aminotransferase (ALT/SGPT) 21 U/L (14-59) Alkaline Phosphatase 83 U/L (46-116) Troponin I Quantitative < 0.017 ng/mL (0.000-0.055) AQ-Wga-S-Type Natriuretic Peptide 544 pg/mL (0-449) Total Protein 8.8 g/dL (6.4-8.2) Albumin 4.0 g/dL (3.4-5.0) Lipase 104 U/L (73-393) Lactic Acid Level 1.6 mmol/L (0.4-2.0) Urine Collection Type Unknown Urine Color Yellow Urine Clarity Clear Urine pH 7.0 Urine Specific [place] 1.010 Urine Protein Negative mg/dL (NEG-TRACE) Urine Glucose (UA) 100 mg/dL (NEG) Urine Ketones (Stick) Negative mg/dL (NEG) Urine Blood Negative (NEG) Urine Nitrite Negative (NEG) Urine Bilirubin Negative (NEG) Urine Urobilinogen Dipstick 0.2 mg/dL (0.2 mg/dL) Urine Leukocyte Esterase Trace (NEG) Urine RBC 3-5 /HPF (0-2) Urine WBC 0 /HPF (0-4) Urine Bacteria 0 /HPF (0-FEW) Urine Mucus Slight /LPF Prothrombin Time 24.8 SEC (11.7-14.0) Prothromb Time International Ratio 2.4 (0.8-1.1) Activated Partial Thromboplast Time 29 SEC (24-38) Test 03/21/17 14:45 03/21/17 19:35 03/22/17 04:25 03/22/17 08:30 O2 Saturation 98 % (92-99) 99 % (92-99) Arterial Blood pH 7.42 (7.35-7.45) 7.53 (7.35-7.45) Arterial Blood pCO2 at Patient Temp 35 mmHg (35-46) 27 mmHg (35-46) Arterial Blood pO2 at Patient Temp 105 mmHg (65-108) 142 mmHg (65-108) Arterial Blood HCO3 22 mmol/L (21-28) 22 mmol/L (21-28) Arterial Blood Base Excess -2 mmol/L (-3-3) 1 mmol/L (-3-3) FiO2 50 40 Prothrombin Time 16.8 SEC (11.7-14.0) Prothromb Time International Ratio 1.5 (0.8-1.1) White Blood Count 10.4 x10^3/uL (4.0-11.0) Red Blood Count 5.22 x10^6/uL (3.50-5.40) Hemoglobin 11.9 g/dL (12.0-15.5) Hematocrit 37.1 % (36.0-47.0) Mean Corpuscular Volume 71 fL (79-100) Mean Corpuscular Hemoglobin 23 pg (25-35) Mean Corpuscular Hemoglobin Concent 32 g/dL (31-37) Red Cell Distribution Width 14.8 % (11.5-14.5) Platelet Count 168 x10^3/uL (140-400) Neutrophils (%) (Auto) 82 % (31-73) Lymphocytes (%) (Auto) 10 % (24-48) Monocytes (%) (Auto) 8 % (0-9) Eosinophils (%) (Auto) 0 % (0-3) Basophils (%) (Auto) 0 % (0-3) Neutrophils # (Auto) 8.5 x10^3uL (1.8-7.7) Lymphocytes # (Auto) 1.0 x10^3/uL (1.0-4.8) Monocytes # (Auto) 0.8 x10^3/uL (0.0-1.1) Eosinophils # (Auto) 0.0 x10^3/uL (0.0-0.7) Basophils # (Auto) 0.0 x10^3/uL (0.0-0.2) Sodium Level 135 mmol/L (136-145) Potassium Level 3.1 mmol/L (3.5-5.1) Chloride Level 98 mmol/L (98-107) Carbon Dioxide Level 23 mmol/L (21-32) Anion Gap 14 (6-14) Blood Urea Nitrogen 10 mg/dL (7-20) Creatinine 0.7 mg/dL (0.6-1.0) Estimated GFR (Cockcroft-Gault) 97.2 Glucose Level 134 mg/dL (70-99) Calcium Level 9.3 mg/dL (8.5-10.1) Assessment and Plan Assessmemt and Plan Problems Medical Problems: (1) Altered mental status Status: Acute (2) Encephalopathy Status: Acute (3) Encephalopathy acute Status: Acute Problems: Comment Review of Relevant I have reviewed the following items javier (where applicable) has been applied. Labs Laboratory Tests Test 03/21/17 13:05 03/21/17 13:17 03/21/17 13:20 03/21/17 13:37 White Blood Count 7.0 x10^3/uL (4.0-11.0) Red Blood Count 5.86 x10^6/uL (3.50-5.40) Hemoglobin 13.4 g/dL (12.0-15.5) Hematocrit 42.5 % (36.0-47.0) Mean Corpuscular Volume 72 fL (79-100) Mean Corpuscular Hemoglobin 23 pg (25-35) Mean Corpuscular Hemoglobin Concent 32 g/dL (31-37) Red Cell Distribution Width 15.6 % (11.5-14.5) Platelet Count 185 x10^3/uL (140-400) Neutrophils (%) (Auto) 77 % (31-73) Lymphocytes (%) (Auto) 18 % (24-48) Monocytes (%) (Auto) 4 % (0-9) Eosinophils (%) (Auto) 1 % (0-3) Basophils (%) (Auto) 1 % (0-3) Neutrophils # (Auto) 5.4 x10^3uL (1.8-7.7) Lymphocytes # (Auto) 1.3 x10^3/uL (1.0-4.8) Monocytes # (Auto) 0.3 x10^3/uL (0.0-1.1) Eosinophils # (Auto) 0.0 x10^3/uL (0.0-0.7) Basophils # (Auto) 0.0 x10^3/uL (0.0-0.2) Platelet Estimate Adequate (ADEQUATE) Hypochromasia Slight Microcytosis Slight Sodium Level 138 mmol/L (136-145) Potassium Level 4.0 mmol/L (3.5-5.1) Chloride Level 101 mmol/L (98-107) Carbon Dioxide Level 23 mmol/L (21-32) Anion Gap 14 (6-14) Blood Urea Nitrogen 10 mg/dL (7-20) Creatinine 0.8 mg/dL (0.6-1.0) Estimated GFR (Cockcroft-Gault) 83.3 Glucose Level 205 mg/dL (70-99) Calcium Level 9.5 mg/dL (8.5-10.1) Total Bilirubin 0.4 mg/dL (0.2-1.0) Direct Bilirubin 0.1 mg/dL (0.0-0.2) Aspartate Amino Transf (AST/SGOT) 19 U/L (15-37) Alanine Aminotransferase (ALT/SGPT) 21 U/L (14-59) Alkaline Phosphatase 83 U/L (46-116) Troponin I Quantitative < 0.017 ng/mL (0.000-0.055) GF-Whl-Y-Type Natriuretic Peptide 544 pg/mL (0-449) Total Protein 8.8 g/dL (6.4-8.2) Albumin 4.0 g/dL (3.4-5.0) Lipase 104 U/L (73-393) Lactic Acid Level 1.6 mmol/L (0.4-2.0) Urine Collection Type Unknown Urine Color Yellow Urine Clarity Clear Urine pH 7.0 Urine Specific [place] 1.010 Urine Protein Negative mg/dL (NEG-TRACE) Urine Glucose (UA) 100 mg/dL (NEG) Urine Ketones (Stick) Negative mg/dL (NEG) Urine Blood Negative (NEG) Urine Nitrite Negative (NEG) Urine Bilirubin Negative (NEG) Urine Urobilinogen Dipstick 0.2 mg/dL (0.2 mg/dL) Urine Leukocyte Esterase Trace (NEG) Urine RBC 3-5 /HPF (0-2) Urine WBC 0 /HPF (0-4) Urine Bacteria 0 /HPF (0-FEW) Urine Mucus Slight /LPF Prothrombin Time 24.8 SEC (11.7-14.0) Prothromb Time International Ratio 2.4 (0.8-1.1) Activated Partial Thromboplast Time 29 SEC (24-38) Test 03/21/17 14:45 03/21/17 19:35 03/22/17 04:25 03/22/17 08:30 O2 Saturation 98 % (92-99) 99 % (92-99) Arterial Blood pH 7.42 (7.35-7.45) 7.53 (7.35-7.45) Arterial Blood pCO2 at Patient Temp 35 mmHg (35-46) 27 mmHg (35-46) Arterial Blood pO2 at Patient Temp 105 mmHg (65-108) 142 mmHg (65-108) Arterial Blood HCO3 22 mmol/L (21-28) 22 mmol/L (21-28) Arterial Blood Base Excess -2 mmol/L (-3-3) 1 mmol/L (-3-3) FiO2 50 40 Prothrombin Time 16.8 SEC (11.7-14.0) Prothromb Time International Ratio 1.5 (0.8-1.1) White Blood Count 10.4 x10^3/uL (4.0-11.0) Red Blood Count 5.22 x10^6/uL (3.50-5.40) Hemoglobin 11.9 g/dL (12.0-15.5) Hematocrit 37.1 % (36.0-47.0) Mean Corpuscular Volume 71 fL (79-100) Mean Corpuscular Hemoglobin 23 pg (25-35) Mean Corpuscular Hemoglobin Concent 32 g/dL (31-37) Red Cell Distribution Width 14.8 % (11.5-14.5) Platelet Count 168 x10^3/uL (140-400) Neutrophils (%) (Auto) 82 % (31-73) Lymphocytes (%) (Auto) 10 % (24-48) Monocytes (%) (Auto) 8 % (0-9) Eosinophils (%) (Auto) 0 % (0-3) Basophils (%) (Auto) 0 % (0-3) Neutrophils # (Auto) 8.5 x10^3uL (1.8-7.7) Lymphocytes # (Auto) 1.0 x10^3/uL (1.0-4.8) Monocytes # (Auto) 0.8 x10^3/uL (0.0-1.1) Eosinophils # (Auto) 0.0 x10^3/uL (0.0-0.7) Basophils # (Auto) 0.0 x10^3/uL (0.0-0.2) Sodium Level 135 mmol/L (136-145) Potassium Level 3.1 mmol/L (3.5-5.1) Chloride Level 98 mmol/L (98-107) Carbon Dioxide Level 23 mmol/L (21-32) Anion Gap 14 (6-14) Blood Urea Nitrogen 10 mg/dL (7-20) Creatinine 0.7 mg/dL (0.6-1.0) Estimated GFR (Cockcroft-Gault) 97.2 Glucose Level 134 mg/dL (70-99) Calcium Level 9.3 mg/dL (8.5-10.1) Laboratory Tests Test 03/21/17 13:05 03/21/17 13:17 03/21/17 13:20 03/21/17 13:37 White Blood Count 7.0 x10^3/uL (4.0-11.0) Red Blood Count 5.86 x10^6/uL (3.50-5.40) Hemoglobin 13.4 g/dL (12.0-15.5) Hematocrit 42.5 % (36.0-47.0) Mean Corpuscular Volume 72 fL (79-100) Mean Corpuscular Hemoglobin 23 pg (25-35) Mean Corpuscular Hemoglobin Concent 32 g/dL (31-37) Red Cell Distribution Width 15.6 % (11.5-14.5) Platelet Count 185 x10^3/uL (140-400) Neutrophils (%) (Auto) 77 % (31-73) Lymphocytes (%) (Auto) 18 % (24-48) Monocytes (%) (Auto) 4 % (0-9) Eosinophils (%) (Auto) 1 % (0-3) Basophils (%) (Auto) 1 % (0-3) Neutrophils # (Auto) 5.4 x10^3uL (1.8-7.7) Lymphocytes # (Auto) 1.3 x10^3/uL (1.0-4.8) Monocytes # (Auto) 0.3 x10^3/uL (0.0-1.1) Eosinophils # (Auto) 0.0 x10^3/uL (0.0-0.7) Basophils # (Auto) 0.0 x10^3/uL (0.0-0.2) Platelet Estimate Adequate (ADEQUATE) Hypochromasia Slight Microcytosis Slight Sodium Level 138 mmol/L (136-145) Potassium Level 4.0 mmol/L (3.5-5.1) Chloride Level 101 mmol/L (98-107) Carbon Dioxide Level 23 mmol/L (21-32) Anion Gap 14 (6-14) Blood Urea Nitrogen 10 mg/dL (7-20) Creatinine 0.8 mg/dL (0.6-1.0) Estimated GFR (Cockcroft-Gault) 83.3 Glucose Level 205 mg/dL (70-99) Calcium Level 9.5 mg/dL (8.5-10.1) Total Bilirubin 0.4 mg/dL (0.2-1.0) Direct Bilirubin 0.1 mg/dL (0.0-0.2) Aspartate Amino Transf (AST/SGOT) 19 U/L (15-37) Alanine Aminotransferase (ALT/SGPT) 21 U/L (14-59) Alkaline Phosphatase 83 U/L (46-116) Troponin I Quantitative < 0.017 ng/mL (0.000-0.055) CV-Aau-Z-Type Natriuretic Peptide 544 pg/mL (0-449) Total Protein 8.8 g/dL (6.4-8.2) Albumin 4.0 g/dL (3.4-5.0) Lipase 104 U/L (73-393) Lactic Acid Level 1.6 mmol/L (0.4-2.0) Urine Collection Type Unknown Urine Color Yellow Urine Clarity Clear Urine pH 7.0 Urine Specific [place] 1.010 Urine Protein Negative mg/dL (NEG-TRACE) Urine Glucose (UA) 100 mg/dL (NEG) Urine Ketones (Stick) Negative mg/dL (NEG) Urine Blood Negative (NEG) Urine Nitrite Negative (NEG) Urine Bilirubin Negative (NEG) Urine Urobilinogen Dipstick 0.2 mg/dL (0.2 mg/dL) Urine Leukocyte Esterase Trace (NEG) Urine RBC 3-5 /HPF (0-2) Urine WBC 0 /HPF (0-4) Urine Bacteria 0 /HPF (0-FEW) Urine Mucus Slight /LPF Prothrombin Time 24.8 SEC (11.7-14.0) Prothromb Time International Ratio 2.4 (0.8-1.1) Activated Partial Thromboplast Time 29 SEC (24-38) Test 03/21/17 14:45 03/21/17 19:35 03/22/17 04:25 03/22/17 08:30 O2 Saturation 98 % (92-99) 99 % (92-99) Arterial Blood pH 7.42 (7.35-7.45) 7.53 (7.35-7.45) Arterial Blood pCO2 at Patient Temp 35 mmHg (35-46) 27 mmHg (35-46) Arterial Blood pO2 at Patient Temp 105 mmHg (65-108) 142 mmHg (65-108) Arterial Blood HCO3 22 mmol/L (21-28) 22 mmol/L (21-28) Arterial Blood Base Excess -2 mmol/L (-3-3) 1 mmol/L (-3-3) FiO2 50 40 Prothrombin Time 16.8 SEC (11.7-14.0) Prothromb Time International Ratio 1.5 (0.8-1.1) White Blood Count 10.4 x10^3/uL (4.0-11.0) Red Blood Count 5.22 x10^6/uL (3.50-5.40) Hemoglobin 11.9 g/dL (12.0-15.5) Hematocrit 37.1 % (36.0-47.0) Mean Corpuscular Volume 71 fL (79-100) Mean Corpuscular Hemoglobin 23 pg (25-35) Mean Corpuscular Hemoglobin Concent 32 g/dL (31-37) Red Cell Distribution Width 14.8 % (11.5-14.5) Platelet Count 168 x10^3/uL (140-400) Neutrophils (%) (Auto) 82 % (31-73) Lymphocytes (%) (Auto) 10 % (24-48) Monocytes (%) (Auto) 8 % (0-9) Eosinophils (%) (Auto) 0 % (0-3) Basophils (%) (Auto) 0 % (0-3) Neutrophils # (Auto) 8.5 x10^3uL (1.8-7.7) Lymphocytes # (Auto) 1.0 x10^3/uL (1.0-4.8) Monocytes # (Auto) 0.8 x10^3/uL (0.0-1.1) Eosinophils # (Auto) 0.0 x10^3/uL (0.0-0.7) Basophils # (Auto) 0.0 x10^3/uL (0.0-0.2) Sodium Level 135 mmol/L (136-145) Potassium Level 3.1 mmol/L (3.5-5.1) Chloride Level 98 mmol/L (98-107) Carbon Dioxide Level 23 mmol/L (21-32) Anion Gap 14 (6-14) Blood Urea Nitrogen 10 mg/dL (7-20) Creatinine 0.7 mg/dL (0.6-1.0) Estimated GFR (Cockcroft-Gault) 97.2 Glucose Level 134 mg/dL (70-99) Calcium Level 9.3 mg/dL (8.5-10.1) Medications Current Medications Sodium Chloride 500 ml @ 500 mls/hr 1X ONCE IV Last administered on 13:14; Start 03/21/17 at 13:15; Stop 03/21/17 at 14:14; Status DC Phytonadione 10 mg/Sodium Chloride 51 ml @ 102 mls/hr 1X ONCE IV Last administered on 03/21/17 14:06; Start 03/21/17 at 14:00; Stop 03/21/17 at 14:29 ; Status DC Diltiazem HCl 125 mg/Dextrose 125 ml @ 0 mls/hr CONT PRN IV SEE I/O RECORD Last administered on 03/21/17 14:35; Start 03/21/17 at 14:15; Stop 03/21/17 at 14:48; Status DC Propofol 50 ml @ As Directed STK-MED ONCE IV ; Start 03/21/17 at 14:10; Stop at 14:11; Status DC Levetiracetam 1000 mg/Sodium Chloride 110 ml @ 440 mls/hr 1X ONCE IV Last administered on 03/21/17 14:51; Start 03/21/17 at 14:45; Stop 03/21/17 at 14:59 ; Status DC Ondansetron HCl (Zofran) 4 mg PRN Q8HRS PRN IV NAUSEA/VOMITING; Start 03/21/17 at 14:30; Stop 03/22/17 at 14:29 Morphine Sulfate 2 mg PRN Q2HR PRN IV PAIN; Start 03/21/17 at 14:30; Stop 03/22 at 14:29; Status UNV Propofol 100 ml @ 0 mls/hr CONT PRN IV PER PROTOCOL Last administered on 22:56; Start 03/21/17 at 14:30 Fentanyl Citrate (Fentanyl 2ml Vial) 25 mcg PRN Q1HR PRN IV COMM; Start at 14:30 Fentanyl Citrate (Fentanyl 2ml Vial) 50 mcg PRN Q1HR PRN IV COMM; Start at 14:30 Chlorhexidine Gluconate (Peridex) 15 ml BID MM Last administered on 03/22/17 09:04; Start 03/21/17 at 21:00 Famotidine (Pepcid) 20 mg BID IVP Last administered on 03/22/17 09:04; Start 03/21/17 at 21:00 Morphine Sulfate 2 mg PRN Q1HR PRN IV COMM; Start 03/21/17 at 14:30; Status UNV Morphine Sulfate 4 mg PRN Q1HR PRN IV COMM; Start 03/21/17 at 14:30; Status UNV Nicardipine HCl 50 mg/Sodium Chloride 270 ml @ 0 mls/hr CONT PRN IV SEE I/O RECORD Last administered on 03/21/17 15:05; Start 03/21/17 at 15:00 Lacosamide 100 mg/ Sodium Chloride 60 ml @ 120 mls/hr BID IV Last administered on 03/22/17t 09:05; Start 03/21/17 at 21:00 Etomidate (Amidate) 20 mg STK-MED ONCE IV ; Start 03/21/17 at 17:59; Stop at 18:00; Status DC Rocuronium [place] (Zemuron) 50 mg STK-MED ONCE .ROUTE ; Start 03/21/17 at 17:59 ; Stop 03/21/17 at 18:00; Status DC Active Scripts Active Reported Warfarin Sodium 5 Mg Tablet 1 Tab PO DAILY Tobramycin-Dexameth Ophth Susp (Tobramycin/Dexamethasone) 5 Ml Drops.susp 1 Drop EACHEYE TID Sotalol (Sotalol Hcl) 80 Mg Tablet 120 Mg PO BID Pravastatin Sodium 40 Mg Tablet 1 Tab PO QHS Pravastatin Sodium 20 Mg Tablet 1 Tab PO DAILY Losartan Potassium 100 Mg Tablet 100 Mg PO DAILY Durezol (Difluprednate) 5 Ml Drops 5 Ml OP TID Diltiazem 24HR Cd (Diltiazem Hcl) 120 Mg Cap.er.24h 1 Cap PO DAILY Vitals/I & O Vital Sign - Last 24 Hours 03/21/17 03/21/17 03/21/17 03/21/17 13:00 13:08 13:20 13:35 Temp 97.7 97.7 Pulse 64 65 67 58 Resp 20 20 18 20 B/P (MAP) 167/99 (121) 198/106 (136) 223/106 (145) 196/102 (133) Pulse Ox 97 96 96 97 O2 Delivery Room Air Room Air Room Air Room Air 03/21/17 03/21/17 03/21/17 03/21/17 13:55 14:05 14:20 14:20 Pulse 64 62 63 63 Resp 20 18 16 16 B/P (MAP) 210/107 (141) 222/143 (169) 206/110 (142) 207/105 (139) Pulse Ox 97 97 97 98 O2 Delivery Room Air Room Air Ventilator Ventilator 03/21/17 03/21/17 03/21/17 03/21/17 14:30 14:35 14:40 14:40 Pulse 70 77 75 Resp 16 17 16 B/P (MAP) 171/87 (115) 179/93 (121) 190/98 (128) Pulse Ox 98 97 98 99 O2 Delivery Ventilator Ventilator Ventilator Ventilator 03/21/17 03/21/17 03/21/17 03/21/17 14:45 15:00 15:15 15:30 Pulse 72 75 Resp 16 17 B/P (MAP) 187/95 (125) 221/114 (149) 178/100 (126) Pulse Ox 98 100 99 O2 Delivery Ventilator Ventilator Ventilator Ventilator 03/21/17 03/21/17 03/21/17 03/21/17 15:40 16:00 16:00 17:00 Temp 97.9 97.9 Pulse 64 60 60 Resp 16 16 16 B/P (MAP) 141/78 (99) 151/83 (105) 159/91 (113) Pulse Ox 99 100 100 O2 Delivery Ventilator Ventilator Mechanical Ventilator Ventilator 03/21/17 03/21/17 03/21/17 03/21/17 18:00 18:14 18:30 19:00 Pulse 60 66 101 Resp 17 16 17 B/P (MAP) 167/108 (127) 182/114 (136) 167/108 (127) Pulse Ox 94 100 100 94 O2 Delivery Ventilator Ventilator Ventilator Ventilator 03/21/17 03/21/17 03/21/17 03/21/17 19:27 20:00 20:00 21:00 Temp 98.5 98.5 Pulse 84 70 Resp 17 17 B/P (MAP) 118/81 (93) 160/96 (117) Pulse Ox 100 94 94 O2 Delivery Ventilator Mechanical Ventilator Ventilator Ventilator 03/21/17 03/21/17 03/21/17 03/21/17 21:05 22:00 23:00 23:05 Pulse 70 71 Resp 17 16 B/P (MAP) 139/90 (106) 141/98 (112) Pulse Ox 100 94 100 100 O2 Delivery Ventilator Ventilator Ventilator Ventilator 03/21/17 03/22/17 03/22/17 03/22/17 23:59 00:00 01:00 01:15 Temp 99.8 99.8 Pulse 76 75 Resp 17 19 B/P (MAP) 151/108 (122) 111/81 (91) Pulse Ox 100 100 100 O2 Delivery Mechanical Ventilator Ventilator Ventilator Ventilator 03/22/17 03/22/17 03/22/17 03/22/17 02:00 03:00 03:24 04:00 Temp 99.6 99.6 Pulse 75 74 74 Resp 18 18 18 B/P (MAP) 130/85 (100) 118/88 (98) 133/93 (106) Pulse Ox 99 99 100 100 O2 Delivery Ventilator Ventilator Ventilator Ventilator 03/22/17 03/22/17 03/22/17 03/22/17 04:00 05:00 05:30 07:00 Pulse 76 70 Resp 18 16 B/P (MAP) 147/98 (114) 150/99 (116) Pulse Ox 99 100 100 O2 Delivery Mechanical Ventilator Ventilator Ventilator Ventilator 03/22/17 03/22/17 03/22/17 07:37 07:45 08:00 Temp 100.3 100.3 Pulse 76 80 Resp 16 19 B/P (MAP) 199/115 (143) 160/88 (112) Pulse Ox 100 100 100 O2 Delivery Ventilator Ventilator Ventilator Intake and Output 03/21/17 03/21/17 03/22/17 15:00 23:00 07:00 Intake Total 51 ml 110 ml 242 ml Output Total 1350 ml 50 ml Balance 51 ml -1240 ml 192 ml YANETH FLORES MD Mar 22, 2017 09:08
[2017-03-22] MEDS ORDERED: POTASSIUM CHLORIDE 40 MEQ in IV DEXTROSE 5% 1,000 ML IV ONE (09:30)
--- NOTE | 2017-03-22 09:36 | PDOC ---
Provider Note Provider Note patient seen and examined in ICU on 03/21/17 at 1830 large left basal ganglia hemorrhage with IV blood, early hydrocephalus and left to right shift on exam small unreactive pupils with weak flexion of left upper ext with stimulation d/w family. They feel strongly that no surgery should be performed and I concur. I explained that at best she could survive with significant deficits. will follow full consult to follow MEGAN HILLIARD MD Mar 22, 2017 09:35
--- NOTE | 2017-03-22 09:37 | PDOC ---
PROGRESS NOTES Subjective Subjective intubated sedation off for 2 hours Objective Objective Vital Signs Date Time Temp Pulse Resp B/P (MAP) Pulse Ox O2 Delivery O2 Flow Rate FiO2 03/22/17 09:18 100 Ventilator 03/22/17 08:00 100.3 80 19 160/88 (112) 100.3 Intake and Output 03/22/17 07:00 Intake Total 403 ml Output Total 1400 ml Balance -997 ml Intake IV Total 403 ml Output Urine Total 1400 ml Physical Exam General: Other (intubated) HEENT: Other (pinpoint nonreactive pupils) Neuro: Other (no spontaneous movement, weak flexion of left upper ext with stimulation) Assessment Assessment Problems Medical Problems: (1) Altered mental status Status: Acute (2) Encephalopathy Status: Acute (3) Encephalopathy acute Status: Acute Plan Plan of Care palliative care meeting later today call with questions Comment Review of Relevant I have reviewed the following items javier (where applicable) has been applied. Labs Laboratory Tests Test 03/21/17 13:05 03/21/17 13:17 03/21/17 13:20 03/21/17 13:37 White Blood Count 7.0 x10^3/uL (4.0-11.0) Red Blood Count 5.86 x10^6/uL (3.50-5.40) Hemoglobin 13.4 g/dL (12.0-15.5) Hematocrit 42.5 % (36.0-47.0) Mean Corpuscular Volume 72 fL (79-100) Mean Corpuscular Hemoglobin 23 pg (25-35) Mean Corpuscular Hemoglobin Concent 32 g/dL (31-37) Red Cell Distribution Width 15.6 % (11.5-14.5) Platelet Count 185 x10^3/uL (140-400) Neutrophils (%) (Auto) 77 % (31-73) Lymphocytes (%) (Auto) 18 % (24-48) Monocytes (%) (Auto) 4 % (0-9) Eosinophils (%) (Auto) 1 % (0-3) Basophils (%) (Auto) 1 % (0-3) Neutrophils # (Auto) 5.4 x10^3uL (1.8-7.7) Lymphocytes # (Auto) 1.3 x10^3/uL (1.0-4.8) Monocytes # (Auto) 0.3 x10^3/uL (0.0-1.1) Eosinophils # (Auto) 0.0 x10^3/uL (0.0-0.7) Basophils # (Auto) 0.0 x10^3/uL (0.0-0.2) Platelet Estimate Adequate (ADEQUATE) Hypochromasia Slight Microcytosis Slight Sodium Level 138 mmol/L (136-145) Potassium Level 4.0 mmol/L (3.5-5.1) Chloride Level 101 mmol/L (98-107) Carbon Dioxide Level 23 mmol/L (21-32) Anion Gap 14 (6-14) Blood Urea Nitrogen 10 mg/dL (7-20) Creatinine 0.8 mg/dL (0.6-1.0) Estimated GFR (Cockcroft-Gault) 83.3 Glucose Level 205 mg/dL (70-99) Calcium Level 9.5 mg/dL (8.5-10.1) Total Bilirubin 0.4 mg/dL (0.2-1.0) Direct Bilirubin 0.1 mg/dL (0.0-0.2) Aspartate Amino Transf (AST/SGOT) 19 U/L (15-37) Alanine Aminotransferase (ALT/SGPT) 21 U/L (14-59) Alkaline Phosphatase 83 U/L (46-116) Troponin I Quantitative < 0.017 ng/mL (0.000-0.055) UN-Rww-V-Type Natriuretic Peptide 544 pg/mL (0-449) Total Protein 8.8 g/dL (6.4-8.2) Albumin 4.0 g/dL (3.4-5.0) Lipase 104 U/L (73-393) Lactic Acid Level 1.6 mmol/L (0.4-2.0) Urine Collection Type Unknown Urine Color Yellow Urine Clarity Clear Urine pH 7.0 Urine Specific [place] 1.010 Urine Protein Negative mg/dL (NEG-TRACE) Urine Glucose (UA) 100 mg/dL (NEG) Urine Ketones (Stick) Negative mg/dL (NEG) Urine Blood Negative (NEG) Urine Nitrite Negative (NEG) Urine Bilirubin Negative (NEG) Urine Urobilinogen Dipstick 0.2 mg/dL (0.2 mg/dL) Urine Leukocyte Esterase Trace (NEG) Urine RBC 3-5 /HPF (0-2) Urine WBC 0 /HPF (0-4) Urine Bacteria 0 /HPF (0-FEW) Urine Mucus Slight /LPF Prothrombin Time 24.8 SEC (11.7-14.0) Prothromb Time International Ratio 2.4 (0.8-1.1) Activated Partial Thromboplast Time 29 SEC (24-38) Test 03/21/17 14:45 03/21/17 19:35 03/22/17 04:25 03/22/17 08:30 O2 Saturation 98 % (92-99) 99 % (92-99) Arterial Blood pH 7.42 (7.35-7.45) 7.53 (7.35-7.45) Arterial Blood pCO2 at Patient Temp 35 mmHg (35-46) 27 mmHg (35-46) Arterial Blood pO2 at Patient Temp 105 mmHg (65-108) 142 mmHg (65-108) Arterial Blood HCO3 22 mmol/L (21-28) 22 mmol/L (21-28) Arterial Blood Base Excess -2 mmol/L (-3-3) 1 mmol/L (-3-3) FiO2 50 40 Prothrombin Time 16.8 SEC (11.7-14.0) Prothromb Time International Ratio 1.5 (0.8-1.1) White Blood Count 10.4 x10^3/uL (4.0-11.0) Red Blood Count 5.22 x10^6/uL (3.50-5.40) Hemoglobin 11.9 g/dL (12.0-15.5) Hematocrit 37.1 % (36.0-47.0) Mean Corpuscular Volume 71 fL (79-100) Mean Corpuscular Hemoglobin 23 pg (25-35) Mean Corpuscular Hemoglobin Concent 32 g/dL (31-37) Red Cell Distribution Width 14.8 % (11.5-14.5) Platelet Count 168 x10^3/uL (140-400) Neutrophils (%) (Auto) 82 % (31-73) Lymphocytes (%) (Auto) 10 % (24-48) Monocytes (%) (Auto) 8 % (0-9) Eosinophils (%) (Auto) 0 % (0-3) Basophils (%) (Auto) 0 % (0-3) Neutrophils # (Auto) 8.5 x10^3uL (1.8-7.7) Lymphocytes # (Auto) 1.0 x10^3/uL (1.0-4.8) Monocytes # (Auto) 0.8 x10^3/uL (0.0-1.1) Eosinophils # (Auto) 0.0 x10^3/uL (0.0-0.7) Basophils # (Auto) 0.0 x10^3/uL (0.0-0.2) Sodium Level 135 mmol/L (136-145) Potassium Level 3.1 mmol/L (3.5-5.1) Chloride Level 98 mmol/L (98-107) Carbon Dioxide Level 23 mmol/L (21-32) Anion Gap 14 (6-14) Blood Urea Nitrogen 10 mg/dL (7-20) Creatinine 0.7 mg/dL (0.6-1.0) Estimated GFR (Cockcroft-Gault) 97.2 Glucose Level 134 mg/dL (70-99) Calcium Level 9.3 mg/dL (8.5-10.1) Laboratory Tests Test 03/21/17 13:05 03/21/17 13:17 03/21/17 13:20 03/21/17 13:37 White Blood Count 7.0 x10^3/uL (4.0-11.0) Red Blood Count 5.86 x10^6/uL (3.50-5.40) Hemoglobin 13.4 g/dL (12.0-15.5) Hematocrit 42.5 % (36.0-47.0) Mean Corpuscular Volume 72 fL (79-100) Mean Corpuscular Hemoglobin 23 pg (25-35) Mean Corpuscular Hemoglobin Concent 32 g/dL (31-37) Red Cell Distribution Width 15.6 % (11.5-14.5) Platelet Count 185 x10^3/uL (140-400) Neutrophils (%) (Auto) 77 % (31-73) Lymphocytes (%) (Auto) 18 % (24-48) Monocytes (%) (Auto) 4 % (0-9) Eosinophils (%) (Auto) 1 % (0-3) Basophils (%) (Auto) 1 % (0-3) Neutrophils # (Auto) 5.4 x10^3uL (1.8-7.7) Lymphocytes # (Auto) 1.3 x10^3/uL (1.0-4.8) Monocytes # (Auto) 0.3 x10^3/uL (0.0-1.1) Eosinophils # (Auto) 0.0 x10^3/uL (0.0-0.7) Basophils # (Auto) 0.0 x10^3/uL (0.0-0.2) Platelet Estimate Adequate (ADEQUATE) Hypochromasia Slight Microcytosis Slight Sodium Level 138 mmol/L (136-145) Potassium Level 4.0 mmol/L (3.5-5.1) Chloride Level 101 mmol/L (98-107) Carbon Dioxide Level 23 mmol/L (21-32) Anion Gap 14 (6-14) Blood Urea Nitrogen 10 mg/dL (7-20) Creatinine 0.8 mg/dL (0.6-1.0) Estimated GFR (Cockcroft-Gault) 83.3 Glucose Level 205 mg/dL (70-99) Calcium Level 9.5 mg/dL (8.5-10.1) Total Bilirubin 0.4 mg/dL (0.2-1.0) Direct Bilirubin 0.1 mg/dL (0.0-0.2) Aspartate Amino Transf (AST/SGOT) 19 U/L (15-37) Alanine Aminotransferase (ALT/SGPT) 21 U/L (14-59) Alkaline Phosphatase 83 U/L (46-116) Troponin I Quantitative < 0.017 ng/mL (0.000-0.055) TI-Hkf-W-Type Natriuretic Peptide 544 pg/mL (0-449) Total Protein 8.8 g/dL (6.4-8.2) Albumin 4.0 g/dL (3.4-5.0) Lipase 104 U/L (73-393) Lactic Acid Level 1.6 mmol/L (0.4-2.0) Urine Collection Type Unknown Urine Color Yellow Urine Clarity Clear Urine pH 7.0 Urine Specific [place] 1.010 Urine Protein Negative mg/dL (NEG-TRACE) Urine Glucose (UA) 100 mg/dL (NEG) Urine Ketones (Stick) Negative mg/dL (NEG) Urine Blood Negative (NEG) Urine Nitrite Negative (NEG) Urine Bilirubin Negative (NEG) Urine Urobilinogen Dipstick 0.2 mg/dL (0.2 mg/dL) Urine Leukocyte Esterase Trace (NEG) Urine RBC 3-5 /HPF (0-2) Urine WBC 0 /HPF (0-4) Urine Bacteria 0 /HPF (0-FEW) Urine Mucus Slight /LPF Prothrombin Time 24.8 SEC (11.7-14.0) Prothromb Time International Ratio 2.4 (0.8-1.1) Activated Partial Thromboplast Time 29 SEC (24-38) Test 03/21/17 14:45 03/21/17 19:35 03/22/17 04:25 03/22/17 08:30 O2 Saturation 98 % (92-99) 99 % (92-99) Arterial Blood pH 7.42 (7.35-7.45) 7.53 (7.35-7.45) Arterial Blood pCO2 at Patient Temp 35 mmHg (35-46) 27 mmHg (35-46) Arterial Blood pO2 at Patient Temp 105 mmHg (65-108) 142 mmHg (65-108) Arterial Blood HCO3 22 mmol/L (21-28) 22 mmol/L (21-28) Arterial Blood Base Excess -2 mmol/L (-3-3) 1 mmol/L (-3-3) FiO2 50 40 Prothrombin Time 16.8 SEC (11.7-14.0) Prothromb Time International Ratio 1.5 (0.8-1.1) White Blood Count 10.4 x10^3/uL (4.0-11.0) Red Blood Count 5.22 x10^6/uL (3.50-5.40) Hemoglobin 11.9 g/dL (12.0-15.5) Hematocrit 37.1 % (36.0-47.0) Mean Corpuscular Volume 71 fL (79-100) Mean Corpuscular Hemoglobin 23 pg (25-35) Mean Corpuscular Hemoglobin Concent 32 g/dL (31-37) Red Cell Distribution Width 14.8 % (11.5-14.5) Platelet Count 168 x10^3/uL (140-400) Neutrophils (%) (Auto) 82 % (31-73) Lymphocytes (%) (Auto) 10 % (24-48) Monocytes (%) (Auto) 8 % (0-9) Eosinophils (%) (Auto) 0 % (0-3) Basophils (%) (Auto) 0 % (0-3) Neutrophils # (Auto) 8.5 x10^3uL (1.8-7.7) Lymphocytes # (Auto) 1.0 x10^3/uL (1.0-4.8) Monocytes # (Auto) 0.8 x10^3/uL (0.0-1.1) Eosinophils # (Auto) 0.0 x10^3/uL (0.0-0.7) Basophils # (Auto) 0.0 x10^3/uL (0.0-0.2) Sodium Level 135 mmol/L (136-145) Potassium Level 3.1 mmol/L (3.5-5.1) Chloride Level 98 mmol/L (98-107) Carbon Dioxide Level 23 mmol/L (21-32) Anion Gap 14 (6-14) Blood Urea Nitrogen 10 mg/dL (7-20) Creatinine 0.7 mg/dL (0.6-1.0) Estimated GFR (Cockcroft-Gault) 97.2 Glucose Level 134 mg/dL (70-99) Calcium Level 9.3 mg/dL (8.5-10.1) Medications Current Medications Sodium Chloride 500 ml @ 500 mls/hr 1X ONCE IV Last administered on 13:14; Start 03/21/17 at 13:15; Stop 03/21/17 at 14:14; Status DC Phytonadione 10 mg/Sodium Chloride 51 ml @ 102 mls/hr 1X ONCE IV Last administered on 03/21/17 14:06; Start 03/21/17 at 14:00; Stop 03/21/17 at 14:29 ; Status DC Diltiazem HCl 125 mg/Dextrose 125 ml @ 0 mls/hr CONT PRN IV SEE I/O RECORD Last administered on 03/21/17 14:35; Start 03/21/17 at 14:15; Stop 03/21/17 at 14:48; Status DC Propofol 50 ml @ As Directed STK-MED ONCE IV ; Start 03/21/17 at 14:10; Stop at 14:11; Status DC Levetiracetam 1000 mg/Sodium Chloride 110 ml @ 440 mls/hr 1X ONCE IV Last administered on 03/21/17 14:51; Start 03/21/17 at 14:45; Stop 03/21/17 at 14:59 ; Status DC Ondansetron HCl (Zofran) 4 mg PRN Q8HRS PRN IV NAUSEA/VOMITING; Start 03/21/17 at 14:30; Stop 03/22/17 at 14:29 Morphine Sulfate 2 mg PRN Q2HR PRN IV PAIN; Start 03/21/17 at 14:30; Stop 03/22 at 14:29; Status UNV Propofol 100 ml @ 0 mls/hr CONT PRN IV PER PROTOCOL Last administered on 22:56; Start 03/21/17 at 14:30 Fentanyl Citrate (Fentanyl 2ml Vial) 25 mcg PRN Q1HR PRN IV COMM; Start at 14:30 Fentanyl Citrate (Fentanyl 2ml Vial) 50 mcg PRN Q1HR PRN IV COMM; Start at 14:30 Chlorhexidine Gluconate (Peridex) 15 ml BID MM Last administered on 03/22/17 09:04; Start 03/21/17 at 21:00 Famotidine (Pepcid) 20 mg BID IVP Last administered on 03/22/17 09:04; Start 03/21/17 at 21:00 Morphine Sulfate 2 mg PRN Q1HR PRN IV COMM; Start 03/21/17 at 14:30; Status UNV Morphine Sulfate 4 mg PRN Q1HR PRN IV COMM; Start 03/21/17 at 14:30; Status UNV Nicardipine HCl 50 mg/Sodium Chloride 270 ml @ 0 mls/hr CONT PRN IV SEE I/O RECORD Last administered on 03/21/17 15:05; Start 03/21/17 at 15:00 Lacosamide 100 mg/ Sodium Chloride 60 ml @ 120 mls/hr BID IV Last administered on 03/22/17 09:05; Start 03/21/17 at 21:00 Etomidate (Amidate) 20 mg STK-MED ONCE IV ; Start 03/21/17 at 17:59; Stop at 18:00; Status DC Rocuronium [place] (Zemuron) 50 mg STK-MED ONCE .ROUTE ; Start 03/21/17 at 17:59 ; Stop 03/21/17 at 18:00; Status DC Potassium Chloride 40 meq/ Dextrose 1,020 ml @ 75 mls/hr 1X ONCE IV ; Start at 09:30; Stop 03/22/17 at 23:05 Active Scripts Active Reported Warfarin Sodium 5 Mg Tablet 1 Tab PO DAILY Tobramycin-Dexameth Ophth Susp (Tobramycin/Dexamethasone) 5 Ml Drops.susp 1 Drop EACHEYE TID Sotalol (Sotalol Hcl) 80 Mg Tablet 120 Mg PO BID Pravastatin Sodium 40 Mg Tablet 1 Tab PO QHS Pravastatin Sodium 20 Mg Tablet 1 Tab PO DAILY Losartan Potassium 100 Mg Tablet 100 Mg PO DAILY Durezol (Difluprednate) 5 Ml Drops 5 Ml OP TID Diltiazem 24HR Cd (Diltiazem Hcl) 120 Mg Cap.er.24h 1 Cap PO DAILY Vitals/I & O Vital Sign - Last 24 Hours 03/21/17 03/21/17 03/21/17 03/21/17 13:00 13:08 13:20 13:35 Temp 97.7 97.7 Pulse 64 65 67 58 Resp 20 20 18 20 B/P (MAP) 167/99 (121) 198/106 (136) 223/106 (145) 196/102 (133) Pulse Ox 97 96 96 97 O2 Delivery Room Air Room Air Room Air Room Air 03/21/17 03/21/17 03/21/17 03/21/17 13:55 14:05 14:20 14:20 Pulse 64 62 63 63 Resp 20 18 16 16 B/P (MAP) 210/107 (141) 222/143 (169) 206/110 (142) 207/105 (139) Pulse Ox 97 97 97 98 O2 Delivery Room Air Room Air Ventilator Ventilator 03/21/17 03/21/17 03/21/17 03/21/17 14:30 14:35 14:40 14:40 Pulse 70 77 75 Resp 16 17 16 B/P (MAP) 171/87 (115) 179/93 (121) 190/98 (128) Pulse Ox 98 97 98 99 O2 Delivery Ventilator Ventilator Ventilator Ventilator 03/21/17 03/21/17 03/21/17 03/21/17 14:45 15:00 15:15 15:30 Pulse 72 75 Resp 16 17 B/P (MAP) 187/95 (125) 221/114 (149) 178/100 (126) Pulse Ox 98 100 99 O2 Delivery Ventilator Ventilator Ventilator Ventilator 03/21/17 03/21/17 03/21/17 03/21/17 15:40 16:00 16:00 17:00 Temp 97.9 97.9 Pulse 64 60 60 Resp 16 16 16 B/P (MAP) 141/78 (99) 151/83 (105) 159/91 (113) Pulse Ox 99 100 100 O2 Delivery Ventilator Ventilator Mechanical Ventilator Ventilator 03/21/17 03/21/17 03/21/17 03/21/17 18:00 18:14 18:30 19:00 Pulse 60 66 101 Resp 17 16 17 B/P (MAP) 167/108 (127) 182/114 (136) 167/108 (127) Pulse Ox 94 100 100 94 O2 Delivery Ventilator Ventilator Ventilator Ventilator 03/21/17 03/21/17 03/21/17 03/21/17 19:27 20:00 20:00 21:00 Temp 98.5 98.5 Pulse 84 70 Resp 17 17 B/P (MAP) 118/81 (93) 160/96 (117) Pulse Ox 100 94 94 O2 Delivery Ventilator Mechanical Ventilator Ventilator Ventilator 03/21/17 03/21/17 03/21/17 03/21/17 21:05 22:00 23:00 23:05 Pulse 70 71 Resp 17 16 B/P (MAP) 139/90 (106) 141/98 (112) Pulse Ox 100 94 100 100 O2 Delivery Ventilator Ventilator Ventilator Ventilator 03/21/17 03/22/17 03/22/17 03/22/17 23:59 00:00 01:00 01:15 Temp 99.8 99.8 Pulse 76 75 Resp 17 19 B/P (MAP) 151/108 (122) 111/81 (91) Pulse Ox 100 100 100 O2 Delivery Mechanical Ventilator Ventilator Ventilator Ventilator 03/22/17 03/22/17 03/22/17 03/22/17 02:00 03:00 03:24 04:00 Temp 99.6 99.6 Pulse 75 74 74 Resp 18 18 18 B/P (MAP) 130/85 (100) 118/88 (98) 133/93 (106) Pulse Ox 99 99 100 100 O2 Delivery Ventilator Ventilator Ventilator Ventilator 03/22/17 03/22/17 03/22/17 03/22/17 04:00 05:00 05:30 07:00 Pulse 76 70 Resp 18 16 B/P (MAP) 147/98 (114) 150/99 (116) Pulse Ox 99 100 100 O2 Delivery Mechanical Ventilator Ventilator Ventilator Ventilator 03/22/17 03/22/17 03/22/17 03/22/17 07:37 07:45 08:00 09:18 Temp 100.3 100.3 Pulse 76 80 Resp 16 19 B/P (MAP) 199/115 (143) 160/88 (112) Pulse Ox 100 100 100 100 O2 Delivery Ventilator Ventilator Ventilator Ventilator Intake and Output 03/21/17 03/21/17 03/22/17 15:00 23:00 07:00 Intake Total 51 ml 110 ml 242 ml Output Total 1350 ml 50 ml Balance 51 ml -1240 ml 192 ml MEGAN HILLIARD MD Mar 22, 2017 09:37
[2017-03-22] MEDS: POTASSIUM CHLORIDE 10MEQ 100 ML IV SCH ×4 (10:52→15:51)
--- NOTE | 2017-03-22 13:28 | PDOC2 ---
PALLIATIVE CARE Palliative Care Note Palliative Care Patient remains on Vent 40%. Overbreathing vent. No response to verbal commands Josh black. Labs, CT scan reviewed. Met with family Met with patient's children; Amador Shepard, Patti, Kaitlyn, Roseann Talisha and Amador 's . Reviewed medical condition including results of 03/[address] scan of Head. They have spoke with Dr. Patrick. They do not want surgery. Wish to focus on her comfort after family members have been able to say their "goodbye" Dr. Vines also spoke with family and reviewed medical condition. Family understands patient may breath after removal of ET Tube. Family understands patient would not have quality of life considering the amount of damage to the brain from bleed. Reviewed pictures of CT scans with family. Family wishes to make changes to comfort care tomorrow after grandson arrives from out of state. ET will be removed and not re-inserted. Medication will be used for comfort. Encouraged family to spend individual time with patient. Confirmed DNR. Understand patient could make changes and not survive until tomorrow. Family would like to take patient home with hospice if stable to transfer ( after "couple of days") Plan: Comfort Care. Will make changes tomorrow when family ready. CHADWICK SEBASTIAN Mar 22, 2017 13:28
--- NOTE | 2017-03-22 14:41 | PDOC ---
PROGRESS NOTES Assessment Assessment Acute large left BG hemorrhagic stroke with extension into lateral, 3rd, and 4th ventricles. Cerebral edema. Midline shift from left to right. Respiratory failure. Metabolic encephalopathy. Ischemic encephalopathy. HTN DM CAD, s/p CABG? RECOMMENDATIONS/PLAN: BP control, BP no higher than 150/90 mmHg. Avoid antiplatelet and anticoagulants. Repeat HCT anytime if condition worse. Vimpat 100 mg IV q12h. Control hyperglycemia. Treat medical diseases. Discussed with her daughters and son about very poor prognosis. Family will go palliative care. HISTORY OF THE PRESENT ILLNESS: 81-y-old AA female patient with above medical diseases was found by her family to have mental status changes and confusion before 8:00 am on 03/21/17. Her mentation continued worse, so she was brought to the ER of [facility] and her HCT revealed large ICH and IVH. PAST MEDICAL HISTORY: Please see above. PAST SURGERY HISTORY: S/P CABG? ALLERGY: Unknown MEDICATIONS: Refer to [facility] FAMILY HISTORY: Non contributory. SOCIAL HISTORY: Denies smoking, drinking, and illicit drug use. REVIEW OF SYSTEMS: Constitutional: No malnutrition, or cachexia. Head: No recent traumatic brain or head injury. Skin: No edema, or rash. Ear: No infection. Eyes: No vision loss or color blindness. Nose: No bleeding or purulent discharges. Hearing: Hearing decrease. Neck: No injury. Breast: No history of cancer, masses,or discharges. Cardiac: CAD, s/p CABG,? HTN. Pulmonary: No COPD. GI: No GI ulcer. Urinary/genital: UTI. Endocrinologic: Diabetes Mellitus. Skeletomuscular: No muscular atrophy, deformity. Neurological: see HP. Psychiatric: Denies drug use/abuse. Otherwise, not [id number] review of systems. PHYSICAL EXAMINATION: General appearance is in acute distress. HEENT: Normocephalic and nontraumatic. Eyes, nose, ears, and throat are unremarkable. Neck is supple. No lymphadenopathy. No crepitus. Cardiovascular: S1, S2, regular rate and rhythm. Pulmonary: Mildly decreased to auscultation bilaterally. Abdomen: Bowel sounds are positive. Extremities: No rash, lesions. NEUROLOGICAL EXAMINATION: Unresponsive. In coma. On vent. Not oriented to time, place and person. Pupil 1 mm, not reactive. EOMI not elicited. CN: Right VII palsy. Muscle tone: Decreased. Muscle strength: no movements to stimuli. DTR: 0-1 Plantar reflex: No response bilaterally Gait: Not able to walk. Sensory exam: no response to pain stimuli. Not able to access cerebellar signs in coma. Objective Objective Vital Signs Date Time Temp Pulse Resp B/P (MAP) Pulse Ox O2 Delivery O2 Flow Rate FiO2 03/22/17 12:58 100 Ventilator 03/22/17 11:15 84 18 140/85 (103) 03/22/17 09:00 99.8 99.8 Intake and Output 03/22/17 07:00 Intake Total 403 ml Output Total 1400 ml Balance -997 ml Intake IV Total 403 ml Output Urine Total 1400 ml Vitals Signs Vitals VS - Last 72 Hours, by Label Date Time Temp Pulse Resp B/P (MAP) Pulse Ox O2 Delivery O2 Flow Rate FiO2 03/22/17 12:58 100 Ventilator 03/22/17 11:27 100 Ventilator 03/22/17 11:15 84 18 140/85 (103) 100 Ventilator 03/22/17 11:00 87 19 136/78 (97) 100 Ventilator 03/22/17 10:45 93 21 135/86 (102) 100 Ventilator 03/22/17 10:15 87 20 156/91 (112) 100 Ventilator 03/22/17 10:00 84 20 171/103 (125) 100 Ventilator 03/22/17 09:18 100 Ventilator 03/22/17 09:15 80 18 148/97 (114) 100 Ventilator 03/22/17 09:00 99.8 79 19 139/90 (106) 100 Ventilator 99.8 03/22/17 08:00 100.3 80 19 160/88 (112) 100 Ventilator 100.3 03/22/17 08:00 Mechanical Ventilator 03/22/17 07:45 76 16 199/115 (143) 100 Ventilator 03/22/17 07:37 100 Ventilator 03/22/17 07:00 70 16 150/99 (116) 100 Ventilator 03/22/17 05:30 100 Ventilator 03/22/17 05:00 76 18 147/98 (114) 99 Ventilator 03/22/17 04:00 Mechanical Ventilator 03/22/17 04:00 99.6 74 18 133/93 (106) 100 Ventilator 99.6 03/22/17 03:24 100 Ventilator 03/22/17 03:00 74 18 118/88 (98) 99 Ventilator 03/22/17 02:00 75 18 130/85 (100) 99 Ventilator 03/22/17 01:15 100 Ventilator 03/22/17 01:00 75 19 111/81 (91) 100 Ventilator 03/22/17 00:00 99.8 76 17 151/108 (122) 100 Ventilator 99.8 03/21/17 23:59 Mechanical Ventilator 03/21/17 23:05 100 Ventilator 03/21/17 23:00 71 16 141/98 (112) 100 Ventilator 03/21/17 22:00 70 17 139/90 (106) 94 Ventilator 03/21/17 21:05 100 Ventilator 03/21/17 21:00 70 17 160/96 (117) 94 Ventilator 03/21/17 20:00 98.5 84 17 118/81 (93) 94 Ventilator 98.5 03/21/17 20:00 Mechanical Ventilator 03/21/17 19:27 100 Ventilator 03/21/17 19:00 101 17 167/108 (127) 94 Ventilator 03/21/17 18:30 66 16 182/114 (136) 100 Ventilator 03/21/17 18:14 100 Ventilator 03/21/17 18:00 60 17 167/108 (127) 94 Ventilator 03/21/17 17:00 60 16 159/91 (113) 100 Ventilator 03/21/17 16:00 Mechanical Ventilator 03/21/17 16:00 60 16 151/83 (105) 100 Ventilator 03/21/17 15:40 97.9 64 16 141/78 (99) 99 Ventilator 97.9 03/21/17 15:30 99 Ventilator 03/21/17 15:15 178/100 (126) Ventilator 03/21/17 15:00 75 17 221/114 (149) 100 Ventilator 03/21/17 14:45 72 16 187/95 (125) 98 Ventilator 03/21/17 14:40 99 Ventilator 03/21/17 14:40 75 16 190/98 (128) 98 Ventilator 03/21/17 14:35 77 17 179/93 (121) 97 Ventilator 03/21/17 14:30 70 16 171/87 (115) 98 Ventilator 03/21/17 14:20 63 16 207/105 (139) 98 Ventilator 03/21/17 14:20 63 16 206/110 (142) 97 Ventilator 03/21/17 14:05 62 18 222/143 (169) 97 Room Air 03/21/17 13:55 64 20 210/107 (141) 97 Room Air 03/21/17 13:35 58 20 196/102 (133) 97 Room Air 03/21/17 13:20 67 18 223/106 (145) 96 Room Air 03/21/17 13:08 65 20 198/106 (136) 96 Room Air 03/21/17 13:00 97.7 64 20 167/99 (121) 97 Room Air 97.7 Laboratory Laboratory Laboratory Tests Test 03/21/17 14:45 03/21/17 17:00 03/21/17 19:35 03/22/17 04:25 O2 Saturation 98 % (92-99) Arterial Blood pH 7.42 (7.35-7.45) Arterial Blood pCO2 at Patient Temp 35 mmHg (35-46) Arterial Blood pO2 at Patient Temp 105 mmHg (65-108) Arterial Blood HCO3 22 mmol/L (21-28) Arterial Blood Base Excess -2 mmol/L (-3-3) FiO2 50 Nasal Screen MRSA (PCR) Negative (Negative) Prothrombin Time 16.8 SEC (11.7-14.0) Prothromb Time International Ratio 1.5 (0.8-1.1) White Blood Count 10.4 x10^3/uL (4.0-11.0) Red Blood Count 5.22 x10^6/uL (3.50-5.40) Hemoglobin 11.9 g/dL (12.0-15.5) Hematocrit 37.1 % (36.0-47.0) Mean Corpuscular Volume 71 fL (79-100) Mean Corpuscular Hemoglobin 23 pg (25-35) Mean Corpuscular Hemoglobin Concent 32 g/dL (31-37) Red Cell Distribution Width 14.8 % (11.5-14.5) Platelet Count 168 x10^3/uL (140-400) Neutrophils (%) (Auto) 82 % (31-73) Lymphocytes (%) (Auto) 10 % (24-48) Monocytes (%) (Auto) 8 % (0-9) Eosinophils (%) (Auto) 0 % (0-3) Basophils (%) (Auto) 0 % (0-3) Neutrophils # (Auto) 8.5 x10^3uL (1.8-7.7) Lymphocytes # (Auto) 1.0 x10^3/uL (1.0-4.8) Monocytes # (Auto) 0.8 x10^3/uL (0.0-1.1) Eosinophils # (Auto) 0.0 x10^3/uL (0.0-0.7) Basophils # (Auto) 0.0 x10^3/uL (0.0-0.2) Sodium Level 135 mmol/L (136-145) Potassium Level 3.1 mmol/L (3.5-5.1) Chloride Level 98 mmol/L (98-107) Carbon Dioxide Level 23 mmol/L (21-32) Anion Gap 14 (6-14) Blood Urea Nitrogen 10 mg/dL (7-20) Creatinine 0.7 mg/dL (0.6-1.0) Estimated GFR (Cockcroft-Gault) 97.2 Glucose Level 134 mg/dL (70-99) Calcium Level 9.3 mg/dL (8.5-10.1) Test 03/22/17 08:30 O2 Saturation 99 % (92-99) Arterial Blood pH 7.53 (7.35-7.45) Arterial Blood pCO2 at Patient Temp 27 mmHg (35-46) Arterial Blood pO2 at Patient Temp 142 mmHg (65-108) Arterial Blood HCO3 22 mmol/L (21-28) Arterial Blood Base Excess 1 mmol/L (-3-3) FiO2 40 Medication Medications Current Medications Chlorhexidine Gluconate (Peridex) 15 ml BID MM Last administered on 03/22/17 09:04; Start 03/21/17 at 21:00 Etomidate (Amidate) 20 mg STK-MED ONCE IV ; Start 03/21/17 at 17:59; Stop at 18:00; Status DC Famotidine (Pepcid) 20 mg BID IVP Last administered on 03/22/17 09:04; Start 03/21/17 at 21:00 Lacosamide 100 mg/ Sodium Chloride 60 ml @ 120 mls/hr BID IV Last administered on 03/22/17 09:05; Start 03/21/17 at 21:00 Levetiracetam 1000 mg/Sodium Chloride 110 ml @ 440 mls/hr 1X ONCE IV Last administered on 03/21/17 14:51; Start 03/21/17 at 14:45; Stop 03/21/17 at 14:59 ; Status DC Nicardipine HCl 50 mg/Sodium Chloride 270 ml @ 0 mls/hr CONT PRN IV SEE I/O RECORD Last administered on 03/21/17 15:05; Start 03/21/17 at 15:00 Potassium Chloride 40 meq/ Dextrose 1,020 ml @ 75 mls/hr 1X ONCE IV ; Start at 09:30; Stop 03/22/17 at 23:05; Status Cancel Potassium Chloride 100 ml @ 100 mls/hr Q1H IV Last administered on 03/22/17 11:59; Start 03/22/17 at 11:00; Stop 03/22/17 at 14:59 Rocuronium [place] (Zemuron) 50 mg STK-MED ONCE .ROUTE ; Start 03/21/17 at 17:59 ; Stop 03/21/17 at 18:00; Status DC Comment Review of Relevant I have reviewed the following items javier (where applicable) has been applied. DAMIEN SCHILLING MD Mar 22, 2017 14:41
--- NOTE | 2017-03-22 15:45 | PDOC ---
PULMONARY PROGRESS NOTES Vitals Vital Signs Date Time Temp Pulse Resp B/P (MAP) Pulse Ox O2 Delivery O2 Flow Rate FiO2 03/22/17 15:34 100 Ventilator 03/22/17 15:00 100.1 86 21 159/84 (109) 100.1 Lungs: Clear, Wheezing Labs Laboratory Tests Test 03/21/17 13:05 03/21/17 13:17 03/21/17 13:20 03/21/17 13:37 White Blood Count 7.0 x10^3/uL (4.0-11.0) Red Blood Count 5.86 x10^6/uL (3.50-5.40) Hemoglobin 13.4 g/dL (12.0-15.5) Hematocrit 42.5 % (36.0-47.0) Mean Corpuscular Volume 72 fL (79-100) Mean Corpuscular Hemoglobin 23 pg (25-35) Mean Corpuscular Hemoglobin Concent 32 g/dL (31-37) Red Cell Distribution Width 15.6 % (11.5-14.5) Platelet Count 185 x10^3/uL (140-400) Neutrophils (%) (Auto) 77 % (31-73) Lymphocytes (%) (Auto) 18 % (24-48) Monocytes (%) (Auto) 4 % (0-9) Eosinophils (%) (Auto) 1 % (0-3) Basophils (%) (Auto) 1 % (0-3) Neutrophils # (Auto) 5.4 x10^3uL (1.8-7.7) Lymphocytes # (Auto) 1.3 x10^3/uL (1.0-4.8) Monocytes # (Auto) 0.3 x10^3/uL (0.0-1.1) Eosinophils # (Auto) 0.0 x10^3/uL (0.0-0.7) Basophils # (Auto) 0.0 x10^3/uL (0.0-0.2) Platelet Estimate Adequate (ADEQUATE) Hypochromasia Slight Microcytosis Slight Sodium Level 138 mmol/L (136-145) Potassium Level 4.0 mmol/L (3.5-5.1) Chloride Level 101 mmol/L (98-107) Carbon Dioxide Level 23 mmol/L (21-32) Anion Gap 14 (6-14) Blood Urea Nitrogen 10 mg/dL (7-20) Creatinine 0.8 mg/dL (0.6-1.0) Estimated GFR (Cockcroft-Gault) 83.3 Glucose Level 205 mg/dL (70-99) Calcium Level 9.5 mg/dL (8.5-10.1) Total Bilirubin 0.4 mg/dL (0.2-1.0) Direct Bilirubin 0.1 mg/dL (0.0-0.2) Aspartate Amino Transf (AST/SGOT) 19 U/L (15-37) Alanine Aminotransferase (ALT/SGPT) 21 U/L (14-59) Alkaline Phosphatase 83 U/L (46-116) Troponin I Quantitative < 0.017 ng/mL (0.000-0.055) DO-Hyd-B-Type Natriuretic Peptide 544 pg/mL (0-449) Total Protein 8.8 g/dL (6.4-8.2) Albumin 4.0 g/dL (3.4-5.0) Lipase 104 U/L (73-393) Lactic Acid Level 1.6 mmol/L (0.4-2.0) Urine Collection Type Unknown Urine Color Yellow Urine Clarity Clear Urine pH 7.0 Urine Specific [place] 1.010 Urine Protein Negative mg/dL (NEG-TRACE) Urine Glucose (UA) 100 mg/dL (NEG) Urine Ketones (Stick) Negative mg/dL (NEG) Urine Blood Negative (NEG) Urine Nitrite Negative (NEG) Urine Bilirubin Negative (NEG) Urine Urobilinogen Dipstick 0.2 mg/dL (0.2 mg/dL) Urine Leukocyte Esterase Trace (NEG) Urine RBC 3-5 /HPF (0-2) Urine WBC 0 /HPF (0-4) Urine Bacteria 0 /HPF (0-FEW) Urine Mucus Slight /LPF Prothrombin Time 24.8 SEC (11.7-14.0) Prothromb Time International Ratio 2.4 (0.8-1.1) Activated Partial Thromboplast Time 29 SEC (24-38) Test 03/21/17 14:45 03/21/17 17:00 03/21/17 19:35 03/22/17 04:25 O2 Saturation 98 % (92-99) Arterial Blood pH 7.42 (7.35-7.45) Arterial Blood pCO2 at Patient Temp 35 mmHg (35-46) Arterial Blood pO2 at Patient Temp 105 mmHg (65-108) Arterial Blood HCO3 22 mmol/L (21-28) Arterial Blood Base Excess -2 mmol/L (-3-3) FiO2 50 Nasal Screen MRSA (PCR) Negative (Negative) Prothrombin Time 16.8 SEC (11.7-14.0) Prothromb Time International Ratio 1.5 (0.8-1.1) White Blood Count 10.4 x10^3/uL (4.0-11.0) Red Blood Count 5.22 x10^6/uL (3.50-5.40) Hemoglobin 11.9 g/dL (12.0-15.5) Hematocrit 37.1 % (36.0-47.0) Mean Corpuscular Volume 71 fL (79-100) Mean Corpuscular Hemoglobin 23 pg (25-35) Mean Corpuscular Hemoglobin Concent 32 g/dL (31-37) Red Cell Distribution Width 14.8 % (11.5-14.5) Platelet Count 168 x10^3/uL (140-400) Neutrophils (%) (Auto) 82 % (31-73) Lymphocytes (%) (Auto) 10 % (24-48) Monocytes (%) (Auto) 8 % (0-9) Eosinophils (%) (Auto) 0 % (0-3) Basophils (%) (Auto) 0 % (0-3) Neutrophils # (Auto) 8.5 x10^3uL (1.8-7.7) Lymphocytes # (Auto) 1.0 x10^3/uL (1.0-4.8) Monocytes # (Auto) 0.8 x10^3/uL (0.0-1.1) Eosinophils # (Auto) 0.0 x10^3/uL (0.0-0.7) Basophils # (Auto) 0.0 x10^3/uL (0.0-0.2) Sodium Level 135 mmol/L (136-145) Potassium Level 3.1 mmol/L (3.5-5.1) Chloride Level 98 mmol/L (98-107) Carbon Dioxide Level 23 mmol/L (21-32) Anion Gap 14 (6-14) Blood Urea Nitrogen 10 mg/dL (7-20) Creatinine 0.7 mg/dL (0.6-1.0) Estimated GFR (Cockcroft-Gault) 97.2 Glucose Level 134 mg/dL (70-99) Calcium Level 9.3 mg/dL (8.5-10.1) Test 03/22/17 08:30 O2 Saturation 99 % (92-99) Arterial Blood pH 7.53 (7.35-7.45) Arterial Blood pCO2 at Patient Temp 27 mmHg (35-46) Arterial Blood pO2 at Patient Temp 142 mmHg (65-108) Arterial Blood HCO3 22 mmol/L (21-28) Arterial Blood Base Excess 1 mmol/L (-3-3) FiO2 40 Laboratory Tests Test 03/21/17 17:00 03/21/17 19:35 03/22/17 04:25 03/22/17 08:30 Nasal Screen MRSA (PCR) Negative (Negative) Prothrombin Time 16.8 SEC (11.7-14.0) Prothromb Time International Ratio 1.5 (0.8-1.1) White Blood Count 10.4 x10^3/uL (4.0-11.0) Red Blood Count 5.22 x10^6/uL (3.50-5.40) Hemoglobin 11.9 g/dL (12.0-15.5) Hematocrit 37.1 % (36.0-47.0) Mean Corpuscular Volume 71 fL (79-100) Mean Corpuscular Hemoglobin 23 pg (25-35) Mean Corpuscular Hemoglobin Concent 32 g/dL (31-37) Red Cell Distribution Width 14.8 % (11.5-14.5) Platelet Count 168 x10^3/uL (140-400) Neutrophils (%) (Auto) 82 % (31-73) Lymphocytes (%) (Auto) 10 % (24-48) Monocytes (%) (Auto) 8 % (0-9) Eosinophils (%) (Auto) 0 % (0-3) Basophils (%) (Auto) 0 % (0-3) Neutrophils # (Auto) 8.5 x10^3uL (1.8-7.7) Lymphocytes # (Auto) 1.0 x10^3/uL (1.0-4.8) Monocytes # (Auto) 0.8 x10^3/uL (0.0-1.1) Eosinophils # (Auto) 0.0 x10^3/uL (0.0-0.7) Basophils # (Auto) 0.0 x10^3/uL (0.0-0.2) Sodium Level 135 mmol/L (136-145) Potassium Level 3.1 mmol/L (3.5-5.1) Chloride Level 98 mmol/L (98-107) Carbon Dioxide Level 23 mmol/L (21-32) Anion Gap 14 (6-14) Blood Urea Nitrogen 10 mg/dL (7-20) Creatinine 0.7 mg/dL (0.6-1.0) Estimated GFR (Cockcroft-Gault) 97.2 Glucose Level 134 mg/dL (70-99) Calcium Level 9.3 mg/dL (8.5-10.1) O2 Saturation 99 % (92-99) Arterial Blood pH 7.53 (7.35-7.45) Arterial Blood pCO2 at Patient Temp 27 mmHg (35-46) Arterial Blood pO2 at Patient Temp 142 mmHg (65-108) Arterial Blood HCO3 22 mmol/L (21-28) Arterial Blood Base Excess 1 mmol/L (-3-3) FiO2 40 Medications Active Scripts Medications Dose Route/Sig Max Daily Dose Days Date Category Warfarin Sodium 5 Mg Tablet 1 Tab PO DAILY 03/21/17 Reported Tobramycin-Dexameth Ophth Susp (Tobramycin/Dexamethasone) 5 Ml Drops.susp 1 Drop EACHEYE TID 03/21/17 Reported Sotalol (Sotalol Hcl) 80 Mg Tablet 120 Mg PO BID 03/21/17 Reported Pravastatin Sodium 40 Mg Tablet 1 Tab PO QHS 03/21/17 Reported Pravastatin Sodium 20 Mg Tablet 1 Tab PO DAILY 03/21/17 Reported Losartan Potassium 100 Mg Tablet 100 Mg PO DAILY 03/21/17 Reported Durezol (Difluprednate) 5 Ml Drops 5 Ml OP TID 03/21/17 Reported Diltiazem 24HR Cd (Diltiazem Hcl) 120 Mg Cap.er.24h 1 Cap PO DAILY 03/21/17 Reported Impression . full note dictated thanks JANNETTE COOK MD Mar 22, 2017 15:45
[2017-03-23] VITALS (20 sets, daily range): BP systolic 117–152; BP diastolic 84–102
[2017-03-23] MEDS: CHLORHEXIDINE 0.12% 15 ML MOUTHWASH. MM SCH ×2 (09:06→21:00)
[2017-03-23] MEDS: LACOSAMIDE 100 MG in IV NORMAL SALINE 50ML 50 ML IV SCH ×2 (09:07→21:42)
[2017-03-23] MEDS: FAMOTIDINE 20 MG/2 ML VIAL IVP SCH ×2 (09:07→21:00)
--- NOTE | 2017-03-23 09:28 | PDOC ---
PROGRESS NOTES Chief Complaint Chief Complaint Worsening Large left basal ganglia hemorrhage with midline shift HTN not controlled on cardene gtt Hypokalemia Hx of atrial fibrillation and mitral valve replacement, was on anticoagulation, Acute respiratory failure on Mechanical ventilation PErsistent encephalopathy sec to above DNR History of Present Illness History of Present Illness Seen in ICU Multiple family at bedside Notes reviewed Brother arrived WiIl terminally extubate today\ ON vent,no sedation, pin point pupils, no response Perdomo in, adeq UO CT scan I have personally reviewed ( 2 scans) ON cardene gtt at 12.5 mcgs, SBP 120s PLAN: INitiate hospice packet Clonidine patch once off cardene gtt SW for hospice dc arrangements Outside DNR I have signed Dw 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 ) Heart: Normal S1, Normal S2 Lungs: Clear, Wheezing Abdomen: Normal bowel sounds, Soft Extremities: No clubbing Skin: No rashes Review of Systems Review of Systems encephalopathic Assessment and Plan Assessmemt and Plan Problems Medical Problems: (1) Altered mental status Status: Acute (2) Encephalopathy Status: Acute (3) Encephalopathy acute Status: Acute Problems: Comment Review of Relevant I have reviewed the following items javier (where applicable) has been applied. Labs Laboratory Tests Test 03/21/17 13:05 03/21/17 13:17 03/21/17 13:20 03/21/17 13:37 White Blood Count 7.0 x10^3/uL (4.0-11.0) Red Blood Count 5.86 x10^6/uL (3.50-5.40) Hemoglobin 13.4 g/dL (12.0-15.5) Hematocrit 42.5 % (36.0-47.0) Mean Corpuscular Volume 72 fL (79-100) Mean Corpuscular Hemoglobin 23 pg (25-35) Mean Corpuscular Hemoglobin Concent 32 g/dL (31-37) Red Cell Distribution Width 15.6 % (11.5-14.5) Platelet Count 185 x10^3/uL (140-400) Neutrophils (%) (Auto) 77 % (31-73) Lymphocytes (%) (Auto) 18 % (24-48) Monocytes (%) (Auto) 4 % (0-9) Eosinophils (%) (Auto) 1 % (0-3) Basophils (%) (Auto) 1 % (0-3) Neutrophils # (Auto) 5.4 x10^3uL (1.8-7.7) Lymphocytes # (Auto) 1.3 x10^3/uL (1.0-4.8) Monocytes # (Auto) 0.3 x10^3/uL (0.0-1.1) Eosinophils # (Auto) 0.0 x10^3/uL (0.0-0.7) Basophils # (Auto) 0.0 x10^3/uL (0.0-0.2) Platelet Estimate Adequate (ADEQUATE) Hypochromasia Slight Microcytosis Slight Sodium Level 138 mmol/L (136-145) Potassium Level 4.0 mmol/L (3.5-5.1) Chloride Level 101 mmol/L (98-107) Carbon Dioxide Level 23 mmol/L (21-32) Anion Gap 14 (6-14) Blood Urea Nitrogen 10 mg/dL (7-20) Creatinine 0.8 mg/dL (0.6-1.0) Estimated GFR (Cockcroft-Gault) 83.3 Glucose Level 205 mg/dL (70-99) Calcium Level 9.5 mg/dL (8.5-10.1) Total Bilirubin 0.4 mg/dL (0.2-1.0) Direct Bilirubin 0.1 mg/dL (0.0-0.2) Aspartate Amino Transf (AST/SGOT) 19 U/L (15-37) Alanine Aminotransferase (ALT/SGPT) 21 U/L (14-59) Alkaline Phosphatase 83 U/L (46-116) Troponin I Quantitative < 0.017 ng/mL (0.000-0.055) AI-Bqd-I-Type Natriuretic Peptide 544 pg/mL (0-449) Total Protein 8.8 g/dL (6.4-8.2) Albumin 4.0 g/dL (3.4-5.0) Lipase 104 U/L (73-393) Lactic Acid Level 1.6 mmol/L (0.4-2.0) Urine Collection Type Unknown Urine Color Yellow Urine Clarity Clear Urine pH 7.0 Urine Specific [place] 1.010 Urine Protein Negative mg/dL (NEG-TRACE) Urine Glucose (UA) 100 mg/dL (NEG) Urine Ketones (Stick) Negative mg/dL (NEG) Urine Blood Negative (NEG) Urine Nitrite Negative (NEG) Urine Bilirubin Negative (NEG) Urine Urobilinogen Dipstick 0.2 mg/dL (0.2 mg/dL) Urine Leukocyte Esterase Trace (NEG) Urine RBC 3-5 /HPF (0-2) Urine WBC 0 /HPF (0-4) Urine Bacteria 0 /HPF (0-FEW) Urine Mucus Slight /LPF Prothrombin Time 24.8 SEC (11.7-14.0) Prothromb Time International Ratio 2.4 (0.8-1.1) Activated Partial Thromboplast Time 29 SEC (24-38) Test 03/21/17 14:45 03/21/17 17:00 03/21/17 19:35 03/22/17 04:25 O2 Saturation 98 % (92-99) Arterial Blood pH 7.42 (7.35-7.45) Arterial Blood pCO2 at Patient Temp 35 mmHg (35-46) Arterial Blood pO2 at Patient Temp 105 mmHg (65-108) Arterial Blood HCO3 22 mmol/L (21-28) Arterial Blood Base Excess -2 mmol/L (-3-3) FiO2 50 Nasal Screen MRSA (PCR) Negative (Negative) Prothrombin Time 16.8 SEC (11.7-14.0) Prothromb Time International Ratio 1.5 (0.8-1.1) White Blood Count 10.4 x10^3/uL (4.0-11.0) Red Blood Count 5.22 x10^6/uL (3.50-5.40) Hemoglobin 11.9 g/dL (12.0-15.5) Hematocrit 37.1 % (36.0-47.0) Mean Corpuscular Volume 71 fL (79-100) Mean Corpuscular Hemoglobin 23 pg (25-35) Mean Corpuscular Hemoglobin Concent 32 g/dL (31-37) Red Cell Distribution Width 14.8 % (11.5-14.5) Platelet Count 168 x10^3/uL (140-400) Neutrophils (%) (Auto) 82 % (31-73) Lymphocytes (%) (Auto) 10 % (24-48) Monocytes (%) (Auto) 8 % (0-9) Eosinophils (%) (Auto) 0 % (0-3) Basophils (%) (Auto) 0 % (0-3) Neutrophils # (Auto) 8.5 x10^3uL (1.8-7.7) Lymphocytes # (Auto) 1.0 x10^3/uL (1.0-4.8) Monocytes # (Auto) 0.8 x10^3/uL (0.0-1.1) Eosinophils # (Auto) 0.0 x10^3/uL (0.0-0.7) Basophils # (Auto) 0.0 x10^3/uL (0.0-0.2) Sodium Level 135 mmol/L (136-145) Potassium Level 3.1 mmol/L (3.5-5.1) Chloride Level 98 mmol/L (98-107) Carbon Dioxide Level 23 mmol/L (21-32) Anion Gap 14 (6-14) Blood Urea Nitrogen 10 mg/dL (7-20) Creatinine 0.7 mg/dL (0.6-1.0) Estimated GFR (Cockcroft-Gault) 97.2 Glucose Level 134 mg/dL (70-99) Calcium Level 9.3 mg/dL (8.5-10.1) Test 03/22/17 08:30 O2 Saturation 99 % (92-99) Arterial Blood pH 7.53 (7.35-7.45) Arterial Blood pCO2 at Patient Temp 27 mmHg (35-46) Arterial Blood pO2 at Patient Temp 142 mmHg (65-108) Arterial Blood HCO3 22 mmol/L (21-28) Arterial Blood Base Excess 1 mmol/L (-3-3) FiO2 40 Microbiology 03/21/17 Urine Culture - Preliminary, Resulted 03/21/17 Urine Culture Result 1 (ALICIA) - Preliminary, Resulted Medications Current Medications Sodium Chloride 500 ml @ 500 mls/hr 1X ONCE IV Last administered on t 13:14; Start 03/21/17 at 13:15; Stop 03/21/17 at 14:14; Status DC Phytonadione 10 mg/Sodium Chloride 51 ml @ 102 mls/hr 1X ONCE IV Last administered on 03/21/17 14:06; Start 03/21/17 at 14:00; Stop 03/21/17 at 14:29 ; Status DC Diltiazem HCl 125 mg/Dextrose 125 ml @ 0 mls/hr CONT PRN IV SEE I/O RECORD Last administered on 03/21/17 14:35; Start 03/21/17 at 14:15; Stop 03/21/17 at 14:48; Status DC Propofol 50 ml @ As Directed STK-MED ONCE IV ; Start 03/21/17 at 14:10; Stop at 14:11; Status DC Levetiracetam 1000 mg/Sodium Chloride 110 ml @ 440 mls/hr 1X ONCE IV Last administered on 03/21/17 14:51; Start 03/21/17 at 14:45; Stop 03/21/17 at 14:59 ; Status DC Ondansetron HCl (Zofran) 4 mg PRN Q8HRS PRN IV NAUSEA/VOMITING; Start 03/21/17 at 14:30; Stop 03/22/17 at 14:29; Status DC Morphine Sulfate 2 mg PRN Q2HR PRN IV PAIN; Start 03/21/17 at 14:30; Stop 03/22 at 14:29; Status UNV Propofol 100 ml @ 0 mls/hr CONT PRN IV PER PROTOCOL Last administered on 22:56; Start 03/21/17 at 14:30 Fentanyl Citrate (Fentanyl 2ml Vial) 25 mcg PRN Q1HR PRN IV COMM; Start at 14:30 Fentanyl Citrate (Fentanyl 2ml Vial) 50 mcg PRN Q1HR PRN IV COMM; Start at 14:30 Chlorhexidine Gluconate (Peridex) 15 ml BID MM Last administered on 03/23/17 09:06; Start 03/21/17 at 21:00 Famotidine (Pepcid) 20 mg BID IVP Last administered on 03/23/17 09:07; Start 03/21/17 at 21:00 Morphine Sulfate 2 mg PRN Q1HR PRN IV COMM; Start 03/21/17 at 14:30; Status UNV Morphine Sulfate 4 mg PRN Q1HR PRN IV COMM; Start 03/21/17 at 14:30; Status UNV Nicardipine HCl 50 mg/Sodium Chloride 270 ml @ 0 mls/hr CONT PRN IV SEE I/O RECORD Last administered on 03/22/17 21:19; Start 03/21/17 at 15:00 Lacosamide 100 mg/ Sodium Chloride 60 ml @ 120 mls/hr BID IV Last administered on 03/23/17 09:07; Start 03/21/17 at 21:00 Etomidate (Amidate) 20 mg STK-MED ONCE IV ; Start 03/21/17 at 17:59; Stop at 18:00; Status DC Rocuronium [place] (Zemuron) 50 mg STK-MED ONCE .ROUTE ; Start 03/21/17 at 17:59 ; Stop 03/21/17 at 18:00; Status DC Potassium Chloride 40 meq/ Dextrose 1,020 ml @ 75 mls/hr 1X ONCE IV ; Start at 09:30; Stop 03/22/17 at 23:05; Status Cancel Potassium Chloride 100 ml @ 100 mls/hr Q1H IV Last administered on 03/22/17 15:51; Start 03/22/17 at 11:00; Stop 03/22/17 at 14:59; Status DC Active Scripts Active Reported Warfarin Sodium 5 Mg Tablet 1 Tab PO DAILY Tobramycin-Dexameth Ophth Susp (Tobramycin/Dexamethasone) 5 Ml Drops.susp 1 Drop EACHEYE TID Sotalol (Sotalol Hcl) 80 Mg Tablet 120 Mg PO BID Pravastatin Sodium 40 Mg Tablet 1 Tab PO QHS Pravastatin Sodium 20 Mg Tablet 1 Tab PO DAILY Losartan Potassium 100 Mg Tablet 100 Mg PO DAILY Durezol (Difluprednate) 5 Ml Drops 5 Ml OP TID Diltiazem 24HR Cd (Diltiazem Hcl) 120 Mg Cap.er.24h 1 Cap PO DAILY Vitals/I & O Vital Sign - Last 24 Hours 03/22/17 03/22/17 03/22/17 03/22/17 10:00 10:15 10:45 11:00 Pulse 84 87 93 87 Resp B/P (MAP) 171/103 (125) 156/91 (112) 135/86 (102) 136/78 (97) Pulse Ox 100 100 100 100 O2 Delivery Ventilator Ventilator Ventilator Ventilator 03/22/17 03/22/17 03/22/17 03/22/17 11:15 11:27 12:00 12:00 Temp 99.6 99.6 Pulse 84 88 Resp 18 20 B/P (MAP) 140/85 (103) 145/98 (114) Pulse Ox 100 100 100 O2 Delivery Ventilator Ventilator Ventilator Mechanical Ventilator 03/22/17 03/22/17 03/22/17 03/22/17 12:58 13:00 14:00 15:00 Temp 100.1 100.1 Pulse 88 86 86 Resp 20 19 21 B/P (MAP) 158/97 (117) 166/93 (117) 159/84 (109) Pulse Ox 100 100 100 100 O2 Delivery Ventilator Ventilator Ventilator Ventilator 03/22/17 03/22/17 03/22/17 03/22/17 15:34 16:00 16:00 17:00 Temp 99.0 99.0 Pulse 88 89 Resp 20 19 B/P (MAP) 158/96 (116) 156/97 (116) Pulse Ox 100 100 100 O2 Delivery Ventilator Ventilator Mechanical Ventilator Ventilator 03/22/17 03/22/17 03/22/17 03/22/17 17:02 18:00 19:00 19:49 Pulse 96 101 Resp 21 24 B/P (MAP) 151/94 (113) 155/101 (119) Pulse Ox 100 100 100 100 O2 Delivery Ventilator Ventilator Ventilator Ventilator 03/22/17 03/22/17 03/22/17 03/22/17 20:00 20:00 21:00 21:50 Temp 99.7 99.7 Pulse 99 102 Resp 24 24 B/P (MAP) 158/94 (115) 162/103 (122) Pulse Ox 100 100 100 O2 Delivery Mechanical Ventilator Ventilator Ventilator Ventilator 03/22/17 03/22/17 03/22/17 03/23/17 22:00 23:00 23:59 00:00 Temp 99.8 99.8 Pulse 102 106 105 Resp 24 24 24 B/P (MAP) 138/97 (111) 152/99 (116) 144/97 (113) Pulse Ox 100 100 100 O2 Delivery Ventilator Ventilator Mechanical Ventilator Ventilator 03/23/17 03/23/17 03/23/17 03/23/17 00:16 01:00 02:00 02:07 Pulse 105 105 Resp 24 24 B/P (MAP) 142/102 (115) 142/102 (115) Pulse Ox 100 100 100 100 O2 Delivery Ventilator Ventilator Ventilator Ventilator 03/23/17 03/23/17 03/23/17 03/23/17 03:00 04:00 04:00 04:04 Temp 99.8 99.8 Pulse 104 101 Resp 24 24 B/P (MAP) 146/95 (112) 147/92 (110) Pulse Ox 100 100 100 O2 Delivery Ventilator Mechanical Ventilator Ventilator Ventilator 03/23/17 03/23/17 03/23/17 03/23/17 05:00 05:36 06:00 07:03 Pulse 104 96 Resp 24 19 B/P (MAP) 131/96 (108) 120/88 (99) Pulse Ox 100 100 100 100 O2 Delivery Ventilator Ventilator Ventilator Ventilator 03/23/17 03/23/17 03/23/17 07:37 08:00 08:19 Temp 98.8 98.8 Pulse 104 108 Resp 28 24 B/P (MAP) 125/94 (104) 144/98 (113) Pulse Ox 100 100 100 O2 Delivery Ventilator Ventilator Ventilator Intake and Output 03/22/17 03/22/17 03/23/17 15:00 23:00 07:00 Intake Total 275.3 ml 353.93 ml 215 ml Output Total 459 ml 417 ml 125 ml Balance -183.7 ml -63.07 ml 90 ml AUDREY MCGOVERN MD Mar 23, 2017 09:28
[2017-03-23] MEDS ORDERED: MORPHINE SULFATE 10 MG/5 ML ORAL SOLUTION. PO PRN (09:30)
[2017-03-23] MEDS ORDERED: LORazepam INTENSOL 2 MG/ML ORAL.CONC SL PRN (09:30)
--- NOTE | 2017-03-23 09:30 | CONS ---
DATE OF CONSULTATION: 03/22/2017 ATTENDING PHYSICIAN: Jocelyn Rodriguez M.D. REASON FOR CONSULTATION: The patient is seen in pulmonary consultation at the request of Dr. Rodriguez for vent management. HISTORY OF PRESENT ILLNESS: The patient is an 81-year-old with a history of AFib and mitral valve replacement, on anticoagulation, presented with mental status change. She was found to have a large intracranial bleed extending into the left basal ganglia and ventricles. She was intubated. I was asked to manage her ventilator. The patient has been seen by Neurosurgery who has deemed her not a surgical candidate. She has been hemodynamically stable. She is on assist control. She does assist the ventilator. The family is waiting for other family members to arrive for possibility of discontinuing mechanical support. There is no prior history of COPD, hypoxemia, DVT or pulmonary embolism. PAST MEDICAL HISTORY: AFib, mitral valve replacement 9 years ago, osteoarthritis, status post multiple joint replacements; status post bilateral cataract removal. SOCIAL HISTORY: There is no history of tobacco or alcoholism. FAMILY HISTORY: Unknown. REVIEW OF SYSTEMS: Unobtainable secondary to the patient's condition. MEDICATIONS: List from home was reviewed. She was on Coumadin. CURRENT MEDICATIONS: List was likewise reviewed. Please see the MRAD. PHYSICAL EXAMINATION: VITAL SIGNS: The patient was assisting the ventilator. She had not been requiring sedation. LUNGS: Anteriorly were clear. CARDIOVASCULAR: Regular rate and rhythm with S1, S2, no S3. ABDOMEN: Soft, nontender. EXTREMITIES: No clubbing, cyanosis or edema. NEUROLOGIC: The patient was unresponsive. A detailed neuro exam was not performed. LABORATORY DATA: Reviewed. White count was normal, hemoglobin and hematocrit noted. Electrolytes were noted. Arterial blood gas; respiratory alkalosis with a pH of 7.53. INR was initially 2.4. IMPRESSION: 1. Acute respiratory failure secondary to acute intracranial hemorrhage. 2. Acute intracranial hemorrhage. 3. Cerebral edema. 4. Midline shift. 5. Metabolic and ischemic encephalopathy. 6. Hypertension. 7. Previous mitral valve replacement. PLAN: 1. Continue current support. 2. Palliative care involved with the patient's care. I spoke with the family. They are willing to proceed with discontinuing mechanical support sometime in the a.m. once other family members arrive. For now, we will continue current support. I do appreciate the privilege in sharing in the patient's care. JANNETTE COOK MD DR: Yue JOB#: [id number] / [id number]
--- NOTE | 2017-03-23 09:44 | PDOC ---
PULMONARY PROGRESS NOTES Vitals Vital Signs Date Time Temp Pulse Resp B/P (MAP) Pulse Ox O2 Delivery O2 Flow Rate FiO2 03/23/17 09:00 107 30 131/95 (107) 100 Ventilator 03/23/17 08:00 98.8 98.8 Lungs: Clear, Wheezing Labs Laboratory Tests Test 03/21/17 13:05 03/21/17 13:17 03/21/17 13:20 03/21/17 13:37 White Blood Count 7.0 x10^3/uL (4.0-11.0) Red Blood Count 5.86 x10^6/uL (3.50-5.40) Hemoglobin 13.4 g/dL (12.0-15.5) Hematocrit 42.5 % (36.0-47.0) Mean Corpuscular Volume 72 fL (79-100) Mean Corpuscular Hemoglobin 23 pg (25-35) Mean Corpuscular Hemoglobin Concent 32 g/dL (31-37) Red Cell Distribution Width 15.6 % (11.5-14.5) Platelet Count 185 x10^3/uL (140-400) Neutrophils (%) (Auto) 77 % (31-73) Lymphocytes (%) (Auto) 18 % (24-48) Monocytes (%) (Auto) 4 % (0-9) Eosinophils (%) (Auto) 1 % (0-3) Basophils (%) (Auto) 1 % (0-3) Neutrophils # (Auto) 5.4 x10^3uL (1.8-7.7) Lymphocytes # (Auto) 1.3 x10^3/uL (1.0-4.8) Monocytes # (Auto) 0.3 x10^3/uL (0.0-1.1) Eosinophils # (Auto) 0.0 x10^3/uL (0.0-0.7) Basophils # (Auto) 0.0 x10^3/uL (0.0-0.2) Platelet Estimate Adequate (ADEQUATE) Hypochromasia Slight Microcytosis Slight Sodium Level 138 mmol/L (136-145) Potassium Level 4.0 mmol/L (3.5-5.1) Chloride Level 101 mmol/L (98-107) Carbon Dioxide Level 23 mmol/L (21-32) Anion Gap 14 (6-14) Blood Urea Nitrogen 10 mg/dL (7-20) Creatinine 0.8 mg/dL (0.6-1.0) Estimated GFR (Cockcroft-Gault) 83.3 Glucose Level 205 mg/dL (70-99) Calcium Level 9.5 mg/dL (8.5-10.1) Total Bilirubin 0.4 mg/dL (0.2-1.0) Direct Bilirubin 0.1 mg/dL (0.0-0.2) Aspartate Amino Transf (AST/SGOT) 19 U/L (15-37) Alanine Aminotransferase (ALT/SGPT) 21 U/L (14-59) Alkaline Phosphatase 83 U/L (46-116) Troponin I Quantitative < 0.017 ng/mL (0.000-0.055) VF-Pjr-I-Type Natriuretic Peptide 544 pg/mL (0-449) Total Protein 8.8 g/dL (6.4-8.2) Albumin 4.0 g/dL (3.4-5.0) Lipase 104 U/L (73-393) Lactic Acid Level 1.6 mmol/L (0.4-2.0) Urine Collection Type Unknown Urine Color Yellow Urine Clarity Clear Urine pH 7.0 Urine Specific [place] 1.010 Urine Protein Negative mg/dL (NEG-TRACE) Urine Glucose (UA) 100 mg/dL (NEG) Urine Ketones (Stick) Negative mg/dL (NEG) Urine Blood Negative (NEG) Urine Nitrite Negative (NEG) Urine Bilirubin Negative (NEG) Urine Urobilinogen Dipstick 0.2 mg/dL (0.2 mg/dL) Urine Leukocyte Esterase Trace (NEG) Urine RBC 3-5 /HPF (0-2) Urine WBC 0 /HPF (0-4) Urine Bacteria 0 /HPF (0-FEW) Urine Mucus Slight /LPF Prothrombin Time 24.8 SEC (11.7-14.0) Prothromb Time International Ratio 2.4 (0.8-1.1) Activated Partial Thromboplast Time 29 SEC (24-38) Test 03/21/17 14:45 03/21/17 17:00 03/21/17 19:35 03/22/17 04:25 O2 Saturation 98 % (92-99) Arterial Blood pH 7.42 (7.35-7.45) Arterial Blood pCO2 at Patient Temp 35 mmHg (35-46) Arterial Blood pO2 at Patient Temp 105 mmHg (65-108) Arterial Blood HCO3 22 mmol/L (21-28) Arterial Blood Base Excess -2 mmol/L (-3-3) FiO2 50 Nasal Screen MRSA (PCR) Negative (Negative) Prothrombin Time 16.8 SEC (11.7-14.0) Prothromb Time International Ratio 1.5 (0.8-1.1) White Blood Count 10.4 x10^3/uL (4.0-11.0) Red Blood Count 5.22 x10^6/uL (3.50-5.40) Hemoglobin 11.9 g/dL (12.0-15.5) Hematocrit 37.1 % (36.0-47.0) Mean Corpuscular Volume 71 fL (79-100) Mean Corpuscular Hemoglobin 23 pg (25-35) Mean Corpuscular Hemoglobin Concent 32 g/dL (31-37) Red Cell Distribution Width 14.8 % (11.5-14.5) Platelet Count 168 x10^3/uL (140-400) Neutrophils (%) (Auto) 82 % (31-73) Lymphocytes (%) (Auto) 10 % (24-48) Monocytes (%) (Auto) 8 % (0-9) Eosinophils (%) (Auto) 0 % (0-3) Basophils (%) (Auto) 0 % (0-3) Neutrophils # (Auto) 8.5 x10^3uL (1.8-7.7) Lymphocytes # (Auto) 1.0 x10^3/uL (1.0-4.8) Monocytes # (Auto) 0.8 x10^3/uL (0.0-1.1) Eosinophils # (Auto) 0.0 x10^3/uL (0.0-0.7) Basophils # (Auto) 0.0 x10^3/uL (0.0-0.2) Sodium Level 135 mmol/L (136-145) Potassium Level 3.1 mmol/L (3.5-5.1) Chloride Level 98 mmol/L (98-107) Carbon Dioxide Level 23 mmol/L (21-32) Anion Gap 14 (6-14) Blood Urea Nitrogen 10 mg/dL (7-20) Creatinine 0.7 mg/dL (0.6-1.0) Estimated GFR (Cockcroft-Gault) 97.2 Glucose Level 134 mg/dL (70-99) Calcium Level 9.3 mg/dL (8.5-10.1) Test 03/22/17 08:30 O2 Saturation 99 % (92-99) Arterial Blood pH 7.53 (7.35-7.45) Arterial Blood pCO2 at Patient Temp 27 mmHg (35-46) Arterial Blood pO2 at Patient Temp 142 mmHg (65-108) Arterial Blood HCO3 22 mmol/L (21-28) Arterial Blood Base Excess 1 mmol/L (-3-3) FiO2 40 Medications Active Scripts Medications Dose Route/Sig Max Daily Dose Days Date Category Warfarin Sodium 5 Mg Tablet 1 Tab PO DAILY 03/21/17 Reported Tobramycin-Dexameth Ophth Susp (Tobramycin/Dexamethasone) 5 Ml Drops.susp 1 Drop EACHEYE TID 03/21/17 Reported Sotalol (Sotalol Hcl) 80 Mg Tablet 120 Mg PO BID 03/21/17 Reported Pravastatin Sodium 40 Mg Tablet 1 Tab PO QHS 03/21/17 Reported Pravastatin Sodium 20 Mg Tablet 1 Tab PO DAILY 03/21/17 Reported Losartan Potassium 100 Mg Tablet 100 Mg PO DAILY 03/21/17 Reported Durezol (Difluprednate) 5 Ml Drops 5 Ml OP TID 03/21/17 Reported Diltiazem 24HR Cd (Diltiazem Hcl) 120 Mg Cap.er.24h 1 Cap PO DAILY 03/21/17 Reported Impression . full note dictated thanks JANNETTE COOK MD Mar 23, 2017 09:44
[2017-03-23] MEDS ORDERED: cloNIDine TTS-1 1 PATCH PATCH.TDWK TD SCH (10:00)
--- NOTE | 2017-03-23 14:33 | PDOC ---
PULMONARY PROGRESS NOTES Subjective no response Vitals Vital Signs Date Time Temp Pulse Resp B/P (MAP) Pulse Ox O2 Delivery O2 Flow Rate FiO2 03/23/17 12:12 100 Ventilator 03/23/17 12:00 100.1 101 24 130/98 (109) 100.1 Lungs: Clear, Wheezing Cardiovascular: S1, S2 Abdomen: Soft Extremities: No Edema Skin: Warm Labs Laboratory Tests Test 03/21/17 14:45 03/21/17 17:00 03/21/17 19:35 03/22/17 04:25 O2 Saturation 98 % (92-99) Arterial Blood pH 7.42 (7.35-7.45) Arterial Blood pCO2 at Patient Temp 35 mmHg (35-46) Arterial Blood pO2 at Patient Temp 105 mmHg (65-108) Arterial Blood HCO3 22 mmol/L (21-28) Arterial Blood Base Excess -2 mmol/L (-3-3) FiO2 50 Nasal Screen MRSA (PCR) Negative (Negative) Prothrombin Time 16.8 SEC (11.7-14.0) Prothromb Time International Ratio 1.5 (0.8-1.1) White Blood Count 10.4 x10^3/uL (4.0-11.0) Red Blood Count 5.22 x10^6/uL (3.50-5.40) Hemoglobin 11.9 g/dL (12.0-15.5) Hematocrit 37.1 % (36.0-47.0) Mean Corpuscular Volume 71 fL (79-100) Mean Corpuscular Hemoglobin 23 pg (25-35) Mean Corpuscular Hemoglobin Concent 32 g/dL (31-37) Red Cell Distribution Width 14.8 % (11.5-14.5) Platelet Count 168 x10^3/uL (140-400) Neutrophils (%) (Auto) 82 % (31-73) Lymphocytes (%) (Auto) 10 % (24-48) Monocytes (%) (Auto) 8 % (0-9) Eosinophils (%) (Auto) 0 % (0-3) Basophils (%) (Auto) 0 % (0-3) Neutrophils # (Auto) 8.5 x10^3uL (1.8-7.7) Lymphocytes # (Auto) 1.0 x10^3/uL (1.0-4.8) Monocytes # (Auto) 0.8 x10^3/uL (0.0-1.1) Eosinophils # (Auto) 0.0 x10^3/uL (0.0-0.7) Basophils # (Auto) 0.0 x10^3/uL (0.0-0.2) Sodium Level 135 mmol/L (136-145) Potassium Level 3.1 mmol/L (3.5-5.1) Chloride Level 98 mmol/L (98-107) Carbon Dioxide Level 23 mmol/L (21-32) Anion Gap 14 (6-14) Blood Urea Nitrogen 10 mg/dL (7-20) Creatinine 0.7 mg/dL (0.6-1.0) Estimated GFR (Cockcroft-Gault) 97.2 Glucose Level 134 mg/dL (70-99) Calcium Level 9.3 mg/dL (8.5-10.1) Test 03/22/17 08:30 O2 Saturation 99 % (92-99) Arterial Blood pH 7.53 (7.35-7.45) Arterial Blood pCO2 at Patient Temp 27 mmHg (35-46) Arterial Blood pO2 at Patient Temp 142 mmHg (65-108) Arterial Blood HCO3 22 mmol/L (21-28) Arterial Blood Base Excess 1 mmol/L (-3-3) FiO2 40 Medications Active Scripts Medications Dose Route/Sig Max Daily Dose Days Date Category Warfarin Sodium 5 Mg Tablet 1 Tab PO DAILY 03/21/17 Reported Tobramycin-Dexameth Ophth Susp (Tobramycin/Dexamethasone) 5 Ml Drops.susp 1 Drop EACHEYE TID 03/21/17 Reported Sotalol (Sotalol Hcl) 80 Mg Tablet 120 Mg PO BID 03/21/17 Reported Pravastatin Sodium 40 Mg Tablet 1 Tab PO QHS 03/21/17 Reported Pravastatin Sodium 20 Mg Tablet 1 Tab PO DAILY 03/21/17 Reported Losartan Potassium 100 Mg Tablet 100 Mg PO DAILY 03/21/17 Reported Durezol (Difluprednate) 5 Ml Drops 5 Ml OP TID 03/21/17 Reported Diltiazem 24HR Cd (Diltiazem Hcl) 120 Mg Cap.er.24h 1 Cap PO DAILY 03/21/17 Reported Impression . 1. Acute respiratory failure secondary to acute intracranial hemorrhage. 2. Acute intracranial hemorrhage. 3. Cerebral edema. 4. Midline shift. 5. Metabolic and ischemic encephalopathy. 6. Hypertension. 7. Previous mitral valve replacement. Plan . Multiple family members at bedside d/c support later today' pt expected to within 24 hours of d/c support JANNETTE COOK MD Mar 23, 2017 14:33
--- NOTE | 2017-03-23 15:22 | PDOC ---
PROGRESS NOTES Assessment Assessment Acute large left BG hemorrhagic stroke with extension into lateral, 3rd, and 4th ventricles. Cerebral edema. Midline shift from left to right. Respiratory failure. Metabolic encephalopathy. Ischemic encephalopathy. HTN DM CAD, s/p CABG? RECOMMENDATIONS/PLAN: BP control, BP no higher than 150/90 mmHg. Avoid antiplatelet and anticoagulants. Repeat HCT anytime if condition worse. Continue Vimpat 100 mg IV q12h. Control hyperglycemia. Treat medical diseases. Discussed with her daughters and son about very poor prognosis. Neurosurgery had consulted before consulting Neurology. Palliative care team consulted. Family will go palliative care in PM of 03/23. HISTORY OF THE PRESENT ILLNESS: 81-y-old AA female patient with above medical diseases was found by her family to have mental status changes and confusion before 8:00 am on 03/21/17. Her mentation continued worse, so she was brought to the ER of [facility] and her HCT revealed large ICH and IVH. Her condition continued worse. PAST MEDICAL HISTORY: Please see above. PAST SURGERY HISTORY: S/P CABG? ALLERGY: Unknown MEDICATIONS: Refer to [facility] HISTORY: Non contributory. SOCIAL HISTORY: Denies smoking, drinking, and illicit drug use. REVIEW OF SYSTEMS: Constitutional: No malnutrition, or cachexia. Head: No recent traumatic brain or head injury. Skin: No edema, or rash. Ear: No infection. Eyes: No vision loss or color blindness. Nose: No bleeding or purulent discharges. Hearing: Hearing decrease. Neck: No injury. Breast: No history of cancer, masses,or discharges. Cardiac: CAD, s/p CABG,? HTN. Pulmonary: No COPD. GI: No GI ulcer. Urinary/genital: UTI. Endocrinologic: Diabetes Mellitus. Skeletomuscular: No muscular atrophy, deformity. Neurological: see HP. Psychiatric: Denies drug use/abuse. Otherwise, not [id number] review of systems. PHYSICAL EXAMINATION: General appearance is in acute distress. HEENT: Normocephalic and nontraumatic. Eyes, nose, ears, and throat are unremarkable. Neck is supple. No lymphadenopathy. No crepitus. Cardiovascular: S1, S2, regular rate and rhythm. Pulmonary: Mildly decreased to auscultation bilaterally. Abdomen: Bowel sounds are positive. Extremities: No rash, lesions. NEUROLOGICAL EXAMINATION: Unresponsive. In coma. On vent. Not oriented to time, place and person. Pupil 1 mm, not reactive. EOMI not elicited. CN: Right VII palsy. Muscle tone: Decreased. Muscle strength: no movements to stimuli. DTR: 0-1 Plantar reflex: No response bilaterally Gait: Not able to walk. Sensory exam: no response to pain stimuli. Not able to access cerebellar signs in coma. Objective Objective Vital Signs Date Time Temp Pulse Resp B/P (MAP) Pulse Ox O2 Delivery O2 Flow Rate FiO2 03/23/17 15:18 100 Nasal Cannula 3.0 03/23/17 12:00 100.1 101 24 130/98 (109) 100.1 Intake and Output 03/23/17 07:00 Intake Total 844.23 ml Output Total 1001 ml Balance -156.77 ml Intake Oral 0 ml IV Total 844.23 ml Output Urine Total 1001 ml Vitals Signs Vitals VS - Last 72 Hours, by Label Date Time Temp Pulse Resp B/P (MAP) Pulse Ox O2 Delivery O2 Flow Rate FiO2 03/23/17 15:18 100 Nasal Cannula 3.0 03/23/17 12:12 100 Ventilator 03/23/17 12:00 100.1 101 24 130/98 (109) 100 Ventilator 100.1 03/23/17 11:00 105 34 133/89 (104) 100 Ventilator 03/23/17 10:46 105 30 124/88 (100) 100 Ventilator 03/23/17 10:41 100 Ventilator 03/23/17 09:00 107 30 131/95 (107) 100 Ventilator 03/23/17 08:19 100 Ventilator 03/23/17 08:00 98.8 108 24 144/98 (113) 100 Ventilator 98.8 03/23/17 08:00 Mechanical Ventilator 03/23/17 07:37 104 28 125/94 (104) 100 Ventilator 03/23/17 07:03 100 Ventilator 03/23/17 06:00 96 19 120/88 (99) 100 Ventilator 03/23/17 05:36 100 Ventilator 03/23/17 05:00 104 24 131/96 (108) 100 Ventilator 03/23/17 04:04 100 Ventilator 03/23/17 04:00 99.8 101 24 147/92 (110) 100 Ventilator 99.8 03/23/17 04:00 Mechanical Ventilator 03/23/17 03:00 104 24 146/95 (112) 100 Ventilator 03/23/17 02:07 100 Ventilator 03/23/17 02:00 105 24 142/102 (115) 100 Ventilator 03/23/17 01:00 105 24 142/102 (115) 100 Ventilator 03/23/17 00:16 100 Ventilator 03/23/17 00:00 99.8 105 24 144/97 (113) 100 Ventilator 99.8 03/22/17 23:59 Mechanical Ventilator 03/22/17 23:00 106 24 152/99 (116) 100 Ventilator 03/22/17 22:00 102 24 138/97 (111) 100 Ventilator 03/22/17 21:50 100 Ventilator 03/22/17 21:00 102 24 162/103 (122) 100 Ventilator 03/22/17 20:00 99.7 99 24 158/94 (115) 100 Ventilator 99.7 03/22/17 20:00 Mechanical Ventilator 03/22/17 19:49 100 Ventilator 03/22/17 19:00 101 24 155/101 (119) 100 Ventilator 03/22/17 18:00 96 21 151/94 (113) 100 Ventilator 03/22/17 17:02 100 Ventilator 03/22/17 17:00 89 19 156/97 (116) 100 Ventilator 03/22/17 16:00 Mechanical Ventilator 03/22/17 16:00 99.0 88 20 158/96 (116) 100 Ventilator 99.0 03/22/17 15:34 100 Ventilator 03/22/17 15:00 100.1 86 21 159/84 (109) 100 Ventilator 100.1 03/22/17 14:00 86 19 166/93 (117) 100 Ventilator 03/22/17 13:00 88 20 158/97 (117) 100 Ventilator 03/22/17 12:58 100 Ventilator 03/22/17 12:00 Mechanical Ventilator 03/22/17 12:00 99.6 88 20 145/98 (114) 100 Ventilator 99.6 03/22/17 11:27 100 Ventilator 03/22/17 11:15 84 18 140/85 (103) 100 Ventilator 03/22/17 11:00 87 19 136/78 (97) 100 Ventilator 03/22/17 10:45 93 21 135/86 (102) 100 Ventilator 03/22/17 10:15 87 20 156/91 (112) 100 Ventilator 03/22/17 10:00 84 20 171/103 (125) 100 Ventilator 03/22/17 09:18 100 Ventilator 03/22/17 09:15 80 18 148/97 (114) 100 Ventilator 03/22/17 09:00 99.8 79 19 139/90 (106) 100 Ventilator 99.8 03/22/17 08:00 100.3 80 19 160/88 (112) 100 Ventilator 100.3 03/22/17 08:00 Mechanical Ventilator 03/22/17 07:45 76 16 199/115 (143) 100 Ventilator 03/22/17 07:37 100 Ventilator 03/22/17 07:00 70 16 150/99 (116) 100 Ventilator Laboratory Laboratory Microbiology 03/21/17 Urine Culture - Final, Complete 03/21/17 Urine Culture Result 1 (ALICIA) - Final, Complete Medication Medications Current Medications Clonidine HCl (Catapres Tts-1) 1 patch Th TD Last administered on 03/23/17 11: 31; Start 03/23/17 at 10:00 Lorazepam (Ativan Intensol) 2 mg PRN Q6HRS PRN SL ANXIETY / AGITATION Last administered on 03/23/17 15:12; Start 03/23/17 at 09:30 Morphine Sulfate 2 mg PRN Q2HR PRN IV PAIN; Start 03/23/17 at 09:30 Morphine Sulfate (Morphine Oral Solution) 10 mg PRN Q3HRS PRN PO PAIN; Start at 09:30 Comment Review of Relevant I have reviewed the following items javier (where applicable) has been applied. DAMIEN SCHILLING MD Mar 23, 2017 15:22
[2017-03-23] MEDS: MORPHINE SULFATE 2 MG/ML DISP.SYRIN. IV PRN ×3 (16:03→21:43)
[2017-03-24] VITALS: BP 112/83
[2017-03-24] MEDS: MORPHINE SULFATE 2 MG/ML DISP.SYRIN. IV PRN (03:57)
[2017-03-24 04:00] VITALS: BP 96/86
[2017-03-24 08:00] VITALS: BP 112/77
--- NOTE | 2017-03-24 08:42 | PDOC ---
PULMONARY PROGRESS NOTES Subjective NOT SEEN Vitals Vital Signs Date Time Temp Pulse Resp B/P (MAP) Pulse Ox O2 Delivery O2 Flow Rate FiO2 03/24/17 08:00 100.1 103 112/77 (89) 98 Nasal Cannula 3.0 100.1 03/23/17 16:33 25 Medications Active Scripts Medications Dose Route/Sig Max Daily Dose Days Date Category Warfarin Sodium 5 Mg Tablet 1 Tab PO DAILY 03/21/17 Reported Tobramycin-Dexameth Ophth Susp (Tobramycin/Dexamethasone) 5 Ml Drops.susp 1 Drop EACHEYE TID 03/21/17 Reported Sotalol (Sotalol Hcl) 80 Mg Tablet 120 Mg PO BID 03/21/17 Reported Pravastatin Sodium 40 Mg Tablet 1 Tab PO QHS 03/21/17 Reported Pravastatin Sodium 20 Mg Tablet 1 Tab PO DAILY 03/21/17 Reported Losartan Potassium 100 Mg Tablet 100 Mg PO DAILY 03/21/17 Reported Durezol (Difluprednate) 5 Ml Drops 5 Ml OP TID 03/21/17 Reported Diltiazem 24HR Cd (Diltiazem Hcl) 120 Mg Cap.er.24h 1 Cap PO DAILY 03/21/17 Reported Impression . 1. Acute respiratory failure secondary to acute intracranial hemorrhage. 2. Acute intracranial hemorrhage. 3. Cerebral edema. 4. Midline shift. 5. Metabolic and ischemic encephalopathy. 6. Hypertension. 7. Previous mitral valve replacement. Plan . PT NOT SEEN I WILL SIGN OFF JANNETTE COOK MD Mar 24, 2017 08:42
[2017-03-24] MEDS: FAMOTIDINE 20 MG/2 ML VIAL IVP SCH (09:00)
[2017-03-24] MEDS: CHLORHEXIDINE 0.12% 15 ML MOUTHWASH. MM SCH (09:00)
--- NOTE | 2017-03-24 09:42 | PDOC3 ---
Discharge Summary Visit Information Date of Admission: Mar 21, 2017 Date of Discharge: Mar 24, 2017 Admitting Diagnosis Comment: Worsening Large left basal ganglia hemorrhage with midline shift HTN not controlled on cardene gtt Hypokalemia Hx of atrial fibrillation and mitral valve replacement, was on anticoagulation, Acute respiratory failure on Mechanical ventilation PErsistent encephalopathy sec to above DNR Final Diagnosis Problems Medical Problems: (1) Altered mental status Status: Acute (2) Encephalopathy Status: Acute (3) Encephalopathy acute Status: Acute Brief Hospital Course Allergies Allergies Coded Allergies Type Severity Reaction Last Updated Verified codeine Allergy Intermediate 03/21/17 Yes Vital Signs Vital Signs Date Time Temp Pulse Resp B/P (MAP) Pulse Ox O2 Delivery O2 Flow Rate FiO2 03/24/17 08:00 100.1 103 112/77 (89) 98 Nasal Cannula 3.0 100.1 03/23/17 16:33 25 Brief Hospital Course Ms. Mcfadden is a 81 old AA female fell, found unresponsive by family kneeling near bed. INtubated upon arrival. CT scan showed huge hemorrhagic stroke, no response to no sedation on vent. Neuro sx and neurology on board, Palliative consulted, Agreed to withdrawal crae and DNR and hospice, NO chance of meaningful recovery, THere is midline shift and some edema. Pt seen and examined Pinpoint pupils. SOme secretions,. Hospice packet initiated. Dw [employer] and family Discharge Information Condition at Discharge: Comment (hospice) Disposition/Orders: Other (hospice) Scheduled Difluprednate (Durezol), 5 ML OP TID, (Reported) Diltiazem Hcl (Diltiazem 24HR Cd), 1 CAP PO DAILY, (Reported) Losartan Potassium (Losartan Potassium), 100 MG PO DAILY, (Reported) Pravastatin Sodium (Pravastatin Sodium), 1 TAB PO DAILY, (Reported) Pravastatin Sodium (Pravastatin Sodium), 1 TAB PO QHS, (Reported) Sotalol Hcl (Sotalol), 120 MG PO BID, (Reported) Tobramycin/Dexamethasone (Tobramycin-Dexameth Ophth Susp), 1 DROP EACHEYE TID, ( Reported) Warfarin Sodium (Warfarin Sodium), 1 TAB PO DAILY, (Reported) AUDREY MCGOVERN MD Mar 24, 2017 09:42
[2017-03-24] MEDS ORDERED: SCOPOLAMINE 1.5MG PATCH. TD SCH (10:00)
[2017-03-24] MEDS: LACOSAMIDE 100 MG in IV NORMAL SALINE 50ML 50 ML IV SCH (10:22)
[2017-03-24 12:00] VITALS: BP 134/84
--- NOTE | 2017-03-24 13:24 | PDOC ---
PROGRESS NOTES Assessment Assessment Acute large left BG hemorrhagic stroke with extension into lateral, 3rd, and 4th ventricles. Significant cerebral edema. Midline shift from left to right. Respiratory failure. Metabolic encephalopathy. Ischemic encephalopathy. HTN DM CAD, s/p CABG? RECOMMENDATIONS/PLAN: Palliative care team consulted. Family decided for palliative care. HISTORY OF THE PRESENT ILLNESS: 81-y-old AA female patient with above medical diseases was found by her family to have mental status changes and confusion before 8:00 am on 03/21/17. Her mentation continued worse, so she was brought to the ER of [facility] and her HCT revealed large ICH and IVH. Her condition continued worse. PAST MEDICAL HISTORY: Please see above. PAST SURGERY HISTORY: S/P CABG? ALLERGY: Unknown MEDICATIONS: Refer to [facility] HISTORY: Non contributory. SOCIAL HISTORY: Denies smoking, drinking, and illicit drug use. REVIEW OF SYSTEMS: Constitutional: No malnutrition, or cachexia. Head: No recent traumatic brain or head injury. Skin: No edema, or rash. Ear: No infection. Eyes: No vision loss or color blindness. Nose: No bleeding or purulent discharges. Hearing: Hearing decrease. Neck: No injury. Breast: No history of cancer, masses,or discharges. Cardiac: CAD, s/p CABG,? HTN. Pulmonary: No COPD. GI: No GI ulcer. Urinary/genital: UTI. Endocrinologic: Diabetes Mellitus. Skeletomuscular: No muscular atrophy, deformity. Neurological: see HP. Psychiatric: Denies drug use/abuse. Otherwise, not [id number] review of systems. PHYSICAL EXAMINATION: General appearance is in coma. HEENT: Normocephalic and nontraumatic. Eyes, nose, ears, and throat are unremarkable. Neck is supple. No lymphadenopathy. No crepitus. Cardiovascular: S1, S2, regular rate and rhythm. Pulmonary: Off vent. On NC O2. Decreased breathing sounds to auscultation bilaterally. Abdomen: Bowel sounds not appreciated. Extremities: No rash, lesions. NEUROLOGICAL EXAMINATION: Unresponsive. In coma. Off vent on NC O2. Not oriented to time, place and person. Pupil 1 mm, not reactive. EOMI not elicited. CN: No response to exam. Muscle tone: floppy. Muscle strength: no movements to stimuli. DTR: 0 Plantar reflex: No response bilaterally Gait: Not able to walk. Sensory exam: no response to pain stimuli. Objective Objective Vital Signs Date Time Temp Pulse Resp B/P (MAP) Pulse Ox O2 Delivery O2 Flow Rate FiO2 03/24/17 12:00 100.3 103 134/84 (101) 93 Nasal Cannula 3.0 100.3 03/23/17 16:33 25 Intake and Output 03/24/17 07:00 Intake Total 220 ml Output Total 275 ml Balance -55 ml IV Total 200 ml Other 20 ml Output Urine Total 275 ml Vitals Signs Vitals VS - Last 72 Hours, by Label Date Time Temp Pulse Resp B/P (MAP) Pulse Ox O2 Delivery O2 Flow Rate FiO2 03/24/17 12:00 100.3 103 134/84 (101) 93 Nasal Cannula 3.0 100.3 03/24/17 08:00 100.1 103 112/77 (89) 98 Nasal Cannula 3.0 100.1 03/24/17 04:00 Nasal Cannula 2.0 03/24/17 04:00 99.6 103 96/86 (89) 95 Nasal Cannula 3.0 99.6 03/24/17 00:00 99.5 93 112/83 (93) 99 Nasal Cannula 3.0 99.5 03/23/17 23:57 Nasal Cannula 2.0 03/23/17 20:00 99.8 100 118/84 (95) 91 Nasal Cannula 3.0 99.8 03/23/17 19:45 Nasal Cannula 2.0 03/23/17 19:24 100 Nasal Cannula 2.0 03/23/17 18:00 98 140/97 (111) 100 Nasal Cannula 3.0 03/23/17 17:00 98 146/97 (113) 100 Nasal Cannula 3.0 03/23/17 16:33 25 100 Nasal Cannula 3.0 03/23/17 16:03 50 100 Nasal Cannula 3.0 03/23/17 16:00 Nasal Cannula 3.0 03/23/17 16:00 99.8 100 152/98 (116) 100 Nasal Cannula 3.0 99.8 03/23/17 15:18 100 Nasal Cannula 3.0 03/23/17 15:00 106 143/100 (114) 100 Ventilator 03/23/17 14:00 104 133/94 (107) 100 Ventilator 03/23/17 13:00 102 117/99 (105) 100 Ventilator 03/23/17 12:12 100 Ventilator 03/23/17 12:00 Nasal Cannula 3.0 03/23/17 12:00 100.1 101 24 130/98 (109) 100 Ventilator 100.1 03/23/17 11:00 105 34 133/89 (104) 100 Ventilator 03/23/17 10:46 105 30 124/88 (100) 100 Ventilator 03/23/17 10:41 100 Ventilator 03/23/17 09:00 107 30 131/95 (107) 100 Ventilator 03/23/17 08:19 100 Ventilator 03/23/17 08:00 98.8 108 24 144/98 (113) 100 Ventilator 98.8 03/23/17 08:00 Mechanical Ventilator 03/23/17 07:37 104 28 125/94 (104) 100 Ventilator 03/23/17 07:03 100 Ventilator Laboratory Laboratory Microbiology 03/21/17 Urine Culture - Final, Complete 03/21/17 Urine Culture Result 1 (ALICIA) - Final, Complete Medication Medications Current Medications Scopolamine (Transderm-Scop) 1 patch Q3DAYS TD Last administered on 03/24/17t 10:25; Start 03/24/17 at 10:00 Comment Review of Relevant I have reviewed the following items javier (where applicable) has been applied. DAMIEN SCHILLING MD Mar 24, 2017 13:24
== END 2017-03-24 16:23 | disposition hospice, home (50) | DRG 208 ==
LOC: ER 12:54 → 1 WEST ICU 14:30
PROVIDERS: ADMIT Internal Medicine Hematology & Oncology; ATTEND Internal Medicine Hematology & Oncology
PROC: 5A1945Z Respiratory Ventilation, 24-96 Consecutive Hours (ICD-10-PCS; principal; 2017-03-21)
PROC: 0BH17EZ Insertion of Endotracheal Airway into Trachea, Via Natural or Artificial Opening (ICD-10-PCS; 2017-03-21)
PROC: 30233K1 Transfusion of Nonautologous Frozen Plasma into Peripheral Vein, Percutaneous Approach (ICD-10-PCS; 2017-03-21)
PROC: 30233P1 Transfusion of Nonautologous Frozen Red Cells into Peripheral Vein, Percutaneous Approach (ICD-10-PCS; 2017-03-21)
DX: J96.00 Acute respiratory failure, unspecified whether with hypoxia or hypercapnia (principal); G93.41 Metabolic encephalopathy; G93.6 Cerebral edema; I62.9 Nontraumatic intracranial hemorrhage, unspecified; G91.9 Hydrocephalus, unspecified; P91.60 Hypoxic ischemic encephalopathy [HIE], unspecified; E11.65 Type 2 diabetes mellitus with hyperglycemia; E87.6 Hypokalemia; I10 Essential (primary) hypertension; I48.91 Unspecified atrial fibrillation; Z66 Do not resuscitate; Z96.659 Presence of unspecified artificial knee joint; Z96.649 Presence of unspecified artificial hip joint; F41.9 Anxiety disorder, unspecified; Z51.5 Encounter for palliative care; M19.90 Unspecified osteoarthritis, unspecified site; I25.10 Atherosclerotic heart disease of native coronary artery without angina pectoris; Z79.01 Long term (current) use of anticoagulants; Z95.1 Presence of aortocoronary bypass graft; Z95.2 Presence of prosthetic heart valve; Z98.42 Cataract extraction status, left eye; Z98.41 Cataract extraction status, right eye
CPT/HCPCS: 31500; 36415; 36600; 51702; 70450; 71010; 80048; 80076; 81001; 82805; 83605; 83690; 83880; 84484; 85007; 85027; 85610; 85730; 86850; 86900; 86901; 86927; 87086; 87641; 93005; 94002; 94003; 96361; 96365; 96366; 96368; C9254; J1953; J2270; J2704; J3430; J3480; J3490; J7040; J7050; P9017; S0028; 99291-25; J7030